=== PATIENT | female | born 1945 | race African-American/Black ===

== ENCOUNTER 2020-02-17 11:28 | Emergency (ER) | payer OTHER ==
[2020-02-17 11:39] VITALS: TEMP 98.4; BMI 28.1
[2020-02-17] MEDS ORDERED: CLINDAMYCIN 600MG PREMIX IVPB 600 MG/50 ML BAG IVPB ONE ×2 (12:38→13:41)
--- NOTE | 2020-02-17 12:44 | PDOC ---
History of Present Illness - General Chief Complaint: Wound Stated Complaint: RT LEG/FOOT PAIN Time Seen by Provider: 02/17/20 12:27 History Source: Patient Exam Limitations: No Limitations Past History - Travel History Traveled outside of the country in the last 30 days: No Close contact w/someone who was outside of country & ill: No - Medical History Allergies/Adverse Reactions: Allergies Allergy/AdvReac Type Severity Reaction Status Date / Time No Known Allergies Allergy Verified 02/17/20 11:33 Home Medications: Ambulatory Orders Clindamycin [Cleocin -] 600 mg PO Q8H #42 capsule 02/17/20 COPD: No Diabetes: Yes HTN: Yes Hypercholesterolemia: Yes - Psycho-Social/Smoking History Smoking History: Never smoked Have you smoked in the past 12 months: No - Substance Abuse Hx (Audit-C & DAST Scrn) How often the patient has a drink containing alcohol: Never Score: In Men: 4 or > Positive; In Women: 3 or > Positive: 0 Screen Result (Pos requires Nsg. Audit-10AR): Negative In the last yr the pt used illegal drug/Rx for NonMed reason: No Score: Yes response is considered Positive: 0 Screen Result (Positive result requires Nsg. DAST-10): Negative Review of Systems - Review of Systems Able to Perform ROS?: Yes Comments:: 02/17/20 12:40 CONSTITUTIONAL: Absent: fever, chills, diaphoresis, generalized weakness, malaise, loss of appetite HEENT: Absent: rhinorrhea, nasal congestion, throat pain, throat swelling, difficulty swallowing, mouth swelling, ear pain, eye pain, visual Changes CARDIOVASCULAR: Absent: chest pain, loss of consciousness, palpitations, irregular heart rate, peripheral edema RESPIRATORY: Absent: cough, shortness of breath, dyspnea with exertion, orthopnea, wheezing, stridor, hemoptysis GASTROINTESTINAL: Absent: abdominal pain, abdominal distension, nausea, vomiting, diarrhea, constipation, melena, hematochezia GENITOURINARY: Absent: dysuria, frequency, urgency, hesitancy, hematuria, flank pain, genital pain MUSCULOSKELETAL: Absent: myalgia, arthralgia, joint swelling SKIN: Present: R leg wound Absent: rash, itching, pallor HEMATOLOGIC/IMMUNOLOGIC: Absent: easy bleeding, easy bruising, lymphadenopathy, frequent infections ENDOCRINE: Absent: unexplained weight gain, unexplained weight loss, heat intolerance, cold intolerance NEUROLOGIC: Absent: headache, focal weakness or paresthesias, dizziness, unsteady gait, seizure, mental status changes, bladder or bowel incontinence PSYCHIATRIC: Absent: anxiety, depression, suicidal or homicidal ideation, hallucinations. Is the patient limited Italian proficient: No *Physical Exam - Vital Signs Last Vital Signs Temp Pulse Resp BP Pulse Ox 98.4 F 89 18 145/86 98 02/17/20 11:33 02/17/20 11:33 02/17/20 11:33 02/17/20 11:33 02/17/20 11:33 - Physical Exam 02/17/20 12:40 GENERAL: Well developed, well nourished. Awake and alert. No acute distress. HEENT: Normocephalic, atraumatic. PERRLA, EOMI. No conjunctival pallor. Sclera are non- icteric. Moist mucous membranes. NECK: Supple. Full ROM. No lymphadenopathy. CARDIOVASCULAR: Regular rate and rhythm. Distal pulses are 2+ and symmetric. PULMONARY: No evidence of respiratory distress. No distress on RA ABDOMINAL: Soft. Non-tender. Non-distended. No rebound or guarding. MUSCULOSKELETAL Normal range of motion at all joints. No bony deformities or tenderness. No CVA tenderness. EXTREMITIES: No cyanosis. No clubbing. No edema. No calf tenderness. SKIN: Quarter sized ulcer to the right lateral ankle with TTP. Serous drainage. Patient with venous stasis changes to the lower extremities bilaterally. 2+ pitting edema.Warm and dry. Normal capillary refill. No rashes. No jaundice. NEUROLOGICAL: Alert, awake, appropriate. Cranial nerves 2-12 intact. No deficits to light touch and temperature in face, upper extremities and lower extremities. No motor deficits in the in face, upper extremities and lower extremities. Normoreflexic in the upper and lower extremities. Normal speech. Toes are down-going bilaterally. Gait is normal without ataxia. PSYCHIATRIC: Cooperative. Good eye contact. Appropriate mood and affect. ED Treatment Course - LABORATORY CBC & Chemistry Diagram: 02/17/20 13:22 02/17/20 13:22 Medical Decision Making - Medical Decision Making 02/17/20 12:42 The patient is a 74-year-old female past medical history of hypertension, hyperlipidemia, diabetes, presents to the ER today with a open wound to the right lateral ankle. She states that she is had the wound since October and that it has been slowly healing. She states that approximately 3 days ago the scab fell off and she has noticed some drainage since. She states it is tender to touch. She denies fevers, chills, nausea, vomiting, numbness and tingling weakness the affected extremity. A/P: Diabetic ulcer On exam there is a quarter sized ulceration to the right superior lateral ankle with serous drainage. Also tender to palpation. Stage II diabetic ulcer. No antibiotic treatment for this reinfection at this time. Patient otherwise overall appears well. Vital signs stable afebrile. We will obtain basic labs, blood culture, wound culture. Give 1 dose of clindamycin and reevaluate. 02/17/20 14:05 No WBC count, 5 at this time. No L shift 02/17/20 14:13 BUN slightly elevated at 26, Cr of 1.2. Given DM likely patient's baseline. Have nothing to compare to as pt just moved here Given no WBC and no evidence of cellulitis on exam, will discharge patient home with out patient antibiotics and wound care. 02/17/20 14:20 Appt with wound care set up on 02/01 for 9:[address] Wiggins Will refer to PCP for other outpatient needs to establish care Strict return precautions given I discussed the physical exam findings, ancillary test results and final diagnoses with the patient. I answered all of the patient's questions. The patient was satisfied with the care received and felt comfortable with the discharge plan and treatment plan. The Patient agrees to follow up with the [facility] care physician/specialist within 24-72 hours. Return precautions were given. Discharge - Discharge Information Problems reviewed: Yes Clinical Impression/Diagnosis: Diabetic ulcer of lower extremity Condition: Stable Disposition: HOME - Admission No - Follow up/Referral Referrals: Hansel Wiggins DO [Staff Physician] - [facility] [place] [facility] [Provider Group] - Patient Discharge Instructions Patient Printed Discharge Instructions: DI for Diabetic Foot Ulcer Additional Instructions: You were seen for your wound to your right lower leg today. Please take the clindamycin as directed for 2 weeks. Take this medication with food. You may apply warm compresses to the area to help promote healing. Please follow-up with primary care doctor, referral has been provided to you. Please follow-up with our wound care center on the fifth floor on March 03 at 9:30 AM. A appointment has already been set up for you at this time. Please show up at nine to start filling out paperwork. Return to the ER sooner if you have redness to the area, purulent drainage, fever or if you have any changes in your symptoms. - Post Discharge Activity
[2020-02-17 13:38] LABS: BASO % 0.9 % (0-2.0); EOS % 1.7 % (0-4.5); HEMATOCRIT 34.7 % (32.4-45.2); HEMOGLOBIN 11.3 GM/dL (10.7-15.3); LYMPH % 22.6 % (8-40); MCH 28.9 pg (25.7-33.7); MCHC 32.5 g/dl (32.0-36.0); MEAN CELL VOLUME 88.9 fl (80-96); MEAN PLT VOLUME 7.9 fl (7.5-11.1); MONO % 6.9 % (3.8-10.2); NEUT % 67.9 % (42.8-82.8); PLATELET COUNT 224 K/MM3 (134-434); RBC 3.91 M/mm3 (3.60-5.2); RDW 14.6 % (11.6-15.6)
[2020-02-17 14:09] LABS: ALBUMIN 3.2 g/dl (3.4-5.0); BILIRUBIN,TOTAL 0.2 mg/dL (0.2-1); BLOOD UREA NITROGEN 26.4 mg/dL (7-18); CREATININE 1.2 mg/dL (0.55-1.3); POTASSIUM 4.4 mmol/L (3.5-5.1); TOT PROT 7.5 g/dl (6.4-8.2)
[2020-02-17 14:45] VITALS: BP 139/75; PULSE 72
== END 2020-02-17 14:40 | disposition home or self-care (01) ==
LOC: JER 11:28
DX: E11.621 Type 2 diabetes mellitus with foot ulcer (principal)
CPT/HCPCS: 36415; 80053; 85025; 87040; 87070; 87205; 99284-25

== ENCOUNTER 2020-07-09 18:56 | Inpatient (IN) | payer OTHER ==
[2020-07-09 19:10] VITALS: BMI 28.8
[2020-07-09] MEDS ORDERED: VALSARTAN 40 MG TABLET PO ONE (19:27)
[2020-07-09] MEDS ORDERED: NITROGLYCERIN SUBLINGUAL 1/150 0.4 MG TAB SL ONE ×2 (19:27→19:38)
[2020-07-09] MEDS ORDERED: VALSARTAN 80 MG TABLET ONE (19:39)
[2020-07-09] MEDS ORDERED: ACETAMINOPHEN 1000 MG/100 ML VIAL (NON FORMULARY) IVPB ONE (20:00)
[2020-07-09] MEDS ORDERED: ACETAMINOPHEN INJECTION 100 ML IVPB ONE (20:15)
[2020-07-09] MEDS ORDERED: FOLIC ACID INJECTION - 1 MG, THIAMINE HCL 100 MG, MULTIVIT INJECTION ADULT 10 ML in SOD... IVPB ONE (20:15)
[2020-07-09 20:35] LABS: INR 0.96 (0.83-1.09); PROTHROMBIN TIME (PATIENT) 11.6 SEC (9.7-13.0)
[2020-07-09 20:37] LABS: BASO % 0.5 % (0-2.0); EOS % 0.8 % (0-4.5); HEMOGLOBIN 11.3 GM/dL (10.7-15.3); LYMPH % 21.6 % (8-40); MCH 29.1 pg (25.7-33.7); MCHC 33.2 g/dl (32.0-36.0); MEAN CELL VOLUME 87.7 fl (80-96); MEAN PLT VOLUME 9.3 fl (7.5-11.1); MONO % 6.9 % (3.8-10.2); NEUT % 70.2 % (42.8-82.8); PLATELET COUNT 213 K/MM3 (134-434); RBC 3.87 M/mm3 (3.60-5.2); RDW 14.7 % (11.6-15.6); WHITE BLOOD COUNT 7.2 K/mm3 (4.0-10.0)
[2020-07-09 20:40] LABS: POTASSIUM 4.2 mmol/L (3.5-5.1)
[2020-07-09 20:44] LABS: ALBUMIN 2.9 g/dl (3.4-5.0); BLOOD UREA NITROGEN 22.9 mg/dL (7-18); CALCIUM 9.3 mg/dL (8.5-10.1)
[2020-07-09 20:46] LABS: CREATININE 1.2 mg/dL (0.55-1.3)
[2020-07-09 20:48] LABS: BILIRUBIN,TOTAL 0.3 mg/dL (0.2-1); TOT PROT 6.8 g/dl (6.4-8.2)
[2020-07-09] MEDS ORDERED: INSULIN REGULAR HUMAN 100 UNITS/ML *VIAL SQ ONE (21:08)
[2020-07-09 21:50] LABS: EPI CELLS 7 /uL (0-25.1); HYALINE CASTS 2 /uL (0-3.1); URINE APPEARANCE CLOUDY; URINE BACTERIA 382 /uL (0-1359); URINE BILIRUBIN NEGATIVE (NEGATIVE); URINE COLOR YELLOW; URINE GLUCOSE (UA) 3+ (NEGATIVE); URINE KETONE NEGATIVE (NEGATIVE); URINE LEUK ESTERASE NEGATIVE (NEGATIVE); URINE NITRITE NEGATIVE (NEGATIVE); URINE PROTEIN 4+ (NEGATIVE); URINE RBC 26 /uL (0-23.9); URINE UROBILINOGEN 0.2 mg/dL (0.2-1.0); URINE WBC 180 /uL (0-25.8)
[2020-07-09] MEDS ORDERED: hydrALAZINE HCL 20 MG/ML VIAL IVPUSH ONE (23:48)
[2020-07-09] MEDS ORDERED: diphenhydrAMINE HCL 25 MG CAPSULE (FP) PO PRN (23:57)
[2020-07-09] MEDS ORDERED: ONDANSETRON 4 MG TABLET PO PRN (23:59)
[2020-07-10] MEDS ORDERED: diphenhydrAMINE HCL 25 MG CAPSULE (FP) PO PRN
[2020-07-10] MEDS: LISINOPRIL 20 MG TABLET PO SCH ×2 (00:30→10:06)
[2020-07-10] MEDS: SERTRALINE HCL 50 MG TABLET (FP) PO SCH ×2 (00:30→10:06)
[2020-07-10] MEDS ORDERED: hydrALAZINE HCL 10 MG TABLET PO PRN (02:00)
[2020-07-10] MEDS ORDERED: hydrALAZINE HCL 20 MG/ML VIAL IVPUSH ONE ×2 (03:13→14:49)
[2020-07-10] MEDS ORDERED: amLODIPine BESYLATE 2.5 MG TABLET (FP) PO ONE (03:13)
[2020-07-10] MEDS ORDERED: INSULIN (NOVOLOG) ASPART 100 UNITS/ML 10ML VIAL SQ ONE ×2 (03:14)
[2020-07-10] MEDS ORDERED: amLODIPine BESYLATE 5 MG TABLET (FP) ONE (03:32)
[2020-07-10 03:55] LABS: BLOOD UREA NITROGEN 22.6 mg/dL (7-18); CALCIUM 8.8 mg/dL (8.5-10.1)
[2020-07-10 03:58] LABS: CREATININE 1.3 mg/dL (0.55-1.3)
[2020-07-10 04:00] LABS: POTASSIUM 8.6 mmol/L (3.5-5.1)
[2020-07-10] MEDS ORDERED: LORazepam 2 MG/ML SDV VIAL IVPUSH ONE (04:31)
[2020-07-10 04:47] LABS: POTASSIUM 3.9 mmol/L (3.5-5.1)
[2020-07-10 04:49] LABS: CALCIUM 9.3 mg/dL (8.5-10.1)
[2020-07-10 04:50] LABS: BLOOD UREA NITROGEN 24.2 mg/dL (7-18)
[2020-07-10] MEDS ORDERED: LORazepam 2 MG/ML SDV VIAL ONE (04:51)
[2020-07-10 04:52] LABS: CREATININE 1.2 mg/dL (0.55-1.3)
[2020-07-10] MEDS ORDERED: LABETALOL HCL 5 MG/1 ML (100MG/20 ML VIAL) IVPUSH ONE ×2 (05:18→06:23)
[2020-07-10 06:54] LABS: BASO % 0.4 % (0-2.0); EOS % 0.1 % (0-4.5); HEMATOCRIT 36.1 % (32.4-45.2); MCH 29.1 pg (25.7-33.7); MCHC 33.3 g/dl (32.0-36.0); MEAN CELL VOLUME 87.3 fl (80-96); MEAN PLT VOLUME 8.6 fl (7.5-11.1); MONO % 5.1 % (3.8-10.2); NEUT % 83.4 % (42.8-82.8); PLATELET COUNT 202 K/MM3 (134-434); RBC 4.13 M/mm3 (3.60-5.2); RDW 14.8 % (11.6-15.6); WHITE BLOOD COUNT 7.9 K/mm3 (4.0-10.0)
[2020-07-10 07:12] LABS: POTASSIUM 3.8 mmol/L (3.5-5.1)
[2020-07-10 07:16] LABS: BLOOD UREA NITROGEN 23.5 mg/dL (7-18); CALCIUM 9.5 mg/dL (8.5-10.1); MAGNESIUM 1.8 mg/dL (1.8-2.4)
[2020-07-10 07:19] LABS: CREATININE 1.3 mg/dL (0.55-1.3)
[2020-07-10 07:20] LABS: BILIRUBIN,TOTAL 0.4 mg/dL (0.2-1); TOT PROT 6.8 g/dl (6.4-8.2)
[2020-07-10] MEDS ORDERED: ASPIRIN 325 MG TABLET PO ONE (10:00)
[2020-07-10] MEDS: amLODIPine BESYLATE 5 MG TABLET (FP) PO SCH (10:06)
[2020-07-10] MEDS: HYDROCHLOROTHIAZIDE 12.5 MG CAPSULE (FP) PO SCH (10:06)
[2020-07-10] MEDS: INSULIN SLIDING SCALE (NOVOLOG) 1 VIAL SQ SCH ×4 (10:24→21:50)
[2020-07-10] MEDS ORDERED: ENOXAPARIN NA (PORCINE) 40 MG/0.4 ML DISP.SYRIN SQ ONE (10:26)
[2020-07-10] MEDS ORDERED: INSULIN SLIDING SCALE (NOVOLOG) 1 VIAL SQ ONE (10:26)
[2020-07-10] MEDS: ENOXAPARIN NA (PORCINE) 40 MG/0.4 ML DISP.SYRIN SQ SCH (10:33)
[2020-07-10] MEDS ORDERED: LABETALOL HCL 5 MG/1 ML (200MG/40ML VIAL) IVPB ONE (10:47)
[2020-07-10] MEDS ORDERED: LORazepam 1 MG TABLET PO PRN (12:53)
[2020-07-10] MEDS ORDERED: LORazepam 2 MG/ML SDV VIAL IVPB PRN (17:55)
[2020-07-11] MEDS: INSULIN SLIDING SCALE (NOVOLOG) 1 VIAL SQ SCH ×4 (06:41→22:48)
[2020-07-11] MEDS: amLODIPine BESYLATE 5 MG TABLET (FP) PO SCH (11:01)
[2020-07-11] MEDS: ENOXAPARIN NA (PORCINE) 40 MG/0.4 ML DISP.SYRIN SQ SCH (11:01)
[2020-07-11] MEDS: LISINOPRIL 20 MG TABLET PO SCH (11:01)
[2020-07-11] MEDS: SERTRALINE HCL 50 MG TABLET (FP) PO SCH (11:02)
[2020-07-11] MEDS: ASPIRIN COATED 81 MG TABLET.EC PO SCH (11:02)
[2020-07-11] MEDS: HYDROCHLOROTHIAZIDE 12.5 MG CAPSULE (FP) PO SCH (11:02)
[2020-07-11] MEDS: ATORVASTATIN CA 40 MG TABLET (FP) PO SCH (22:47)
[2020-07-12] MEDS: INSULIN SLIDING SCALE (NOVOLOG) 1 VIAL SQ SCH ×4 (06:51→22:20)
[2020-07-12 08:26] LABS: BASO % 1.1 % (0-2.0); EOS % 1.5 % (0-4.5); HEMATOCRIT 32.9 % (32.4-45.2); LYMPH % 28.5 % (8-40); MCH 29.6 pg (25.7-33.7); MCHC 33.5 g/dl (32.0-36.0); MEAN CELL VOLUME 88.3 fl (80-96); MONO % 8.6 % (3.8-10.2); NEUT % 60.3 % (42.8-82.8); PLATELET COUNT 187 K/MM3 (134-434); RBC 3.72 M/mm3 (3.60-5.2); RDW 15.2 % (11.6-15.6)
[2020-07-12 08:44] LABS: POTASSIUM 4.2 mmol/L (3.5-5.1)
[2020-07-12 08:48] LABS: ALBUMIN 2.5 g/dl (3.4-5.0)
[2020-07-12 08:51] LABS: MAGNESIUM 2.2 mg/dL (1.8-2.4)
[2020-07-12 08:52] LABS: BLOOD UREA NITROGEN 27.4 mg/dL (7-18); CALCIUM 8.9 mg/dL (8.5-10.1); CREATININE 1.6 mg/dL (0.55-1.3)
[2020-07-12 08:53] LABS: TOT PROT 5.9 g/dl (6.4-8.2)
[2020-07-12 08:56] LABS: PHOSPHOROUS 4.2 mg/dL (2.5-4.9)
[2020-07-12 08:57] LABS: BILIRUBIN,TOTAL 0.5 mg/dL (0.2-1)
[2020-07-12] MEDS: ASPIRIN COATED 81 MG TABLET.EC PO SCH (10:06)
[2020-07-12] MEDS: LISINOPRIL 20 MG TABLET PO SCH (10:07)
[2020-07-12] MEDS: amLODIPine BESYLATE 5 MG TABLET (FP) PO SCH (10:07)
[2020-07-12] MEDS: ENOXAPARIN NA (PORCINE) 40 MG/0.4 ML DISP.SYRIN SQ SCH (10:07)
[2020-07-12] MEDS: SERTRALINE HCL 50 MG TABLET (FP) PO SCH (10:09)
[2020-07-12] MEDS: HYDROCHLOROTHIAZIDE 12.5 MG CAPSULE (FP) PO SCH (10:10)
[2020-07-12] MEDS ORDERED: amLODIPine BESYLATE 5 MG TABLET (FP) PO ONE (22:00)
[2020-07-12] MEDS: ATORVASTATIN CA 40 MG TABLET (FP) PO SCH (22:20)
[2020-07-13] MEDS: INSULIN SLIDING SCALE (NOVOLOG) 1 VIAL SQ SCH ×4 (07:04→22:12)
[2020-07-13] MEDS: ASPIRIN COATED 81 MG TABLET.EC PO SCH (09:27)
[2020-07-13] MEDS: SERTRALINE HCL 50 MG TABLET (FP) PO SCH (09:27)
[2020-07-13] MEDS: HYDROCHLOROTHIAZIDE 12.5 MG CAPSULE (FP) PO SCH (09:27)
[2020-07-13] MEDS: LISINOPRIL 20 MG TABLET PO SCH (09:27)
[2020-07-13] MEDS: ENOXAPARIN NA (PORCINE) 40 MG/0.4 ML DISP.SYRIN SQ SCH (09:27)
[2020-07-13] MEDS ORDERED: amLODIPine BESYLATE 5 MG TABLET (FP) PO SCH (10:00)
[2020-07-13 11:52] LABS: HEMATOCRIT 31.9 % (32.4-45.2); HEMOGLOBIN 10.6 GM/dL (10.7-15.3); MCH 29.4 pg (25.7-33.7); MCHC 33.3 g/dl (32.0-36.0); MEAN CELL VOLUME 88.2 fl (80-96); MEAN PLT VOLUME 8.7 fl (7.5-11.1); PLATELET COUNT 209 K/MM3 (134-434); RBC 3.62 M/mm3 (3.60-5.2); RDW 14.9 % (11.6-15.6); WHITE BLOOD COUNT 5.9 K/mm3 (4.0-10.0)
[2020-07-13] MEDS: INSULIN (LEVEMIR) 100 UNITS/ML UNITS SQ SCH ×2 (12:17→22:11)
[2020-07-13 12:27] LABS: BLOOD UREA NITROGEN 31.2 mg/dL (7-18); CALCIUM 8.4 mg/dL (8.5-10.1); CREATININE 1.8 mg/dL (0.55-1.3); MAGNESIUM 2.3 mg/dL (1.8-2.4); POTASSIUM 4.6 mmol/L (3.5-5.1)
[2020-07-13] MEDS ORDERED: amLODIPine BESYLATE 10 MG TABLET (FP) PO SCH (22:00)
[2020-07-13] MEDS: ATORVASTATIN CA 40 MG TABLET (FP) PO SCH (22:04)
[2020-07-14] MEDS: INSULIN SLIDING SCALE (NOVOLOG) 1 VIAL SQ SCH ×2 (06:00→12:51)
[2020-07-14] MEDS: INSULIN (LEVEMIR) 100 UNITS/ML UNITS SQ SCH (06:02)
[2020-07-14 08:57] LABS: POTASSIUM 4.6 mmol/L (3.5-5.1)
[2020-07-14 09:01] LABS: CALCIUM 8.7 mg/dL (8.5-10.1)
[2020-07-14 09:02] LABS: ALBUMIN 2.4 g/dl (3.4-5.0)
[2020-07-14 09:05] LABS: BILIRUBIN,TOTAL 0.3 mg/dL (0.2-1); TOT PROT 5.7 g/dl (6.4-8.2)
[2020-07-14 09:06] LABS: CREATININE 1.7 mg/dL (0.55-1.3)
[2020-07-14] MEDS ORDERED: LISINOPRIL 20 MG TABLET PO SCH ×2 (10:00)
[2020-07-14] MEDS: ENOXAPARIN NA (PORCINE) 40 MG/0.4 ML DISP.SYRIN SQ SCH (10:21)
[2020-07-14] MEDS: SERTRALINE HCL 50 MG TABLET (FP) PO SCH (10:21)
[2020-07-14] MEDS: ASPIRIN COATED 81 MG TABLET.EC PO SCH (10:23)
[2020-07-14 16:29] VITALS: BP 146/58; PULSE 60; TEMP 97.8
[2020-07-14] MEDS ORDERED: NYSTATIN 500,000 UNITS/5 ML SUSPENSION PO SCH (18:00)
== END 2020-07-14 15:06 | disposition home or self-care (01) | DRG 65 ==
LOC: JER 18:56 → JERBED 21:33 → J6WEST-2 07-10 16:49
PROVIDERS: ADMIT Internal Medicine; ATTEND Internal Medicine
DX: I63.511 Cerebral infarction due to unspecified occlusion or stenosis of right middle cerebral artery (principal); E46 Unspecified protein-calorie malnutrition; I67.4 Hypertensive encephalopathy; E87.1 Hypo-osmolality and hyponatremia; N17.9 Acute kidney failure, unspecified; I16.0 Hypertensive urgency; I12.9 Hypertensive chronic kidney disease with stage 1 through stage 4 chronic kidney disease, or unspecified chronic kidney disease; E11.21 Type 2 diabetes mellitus with diabetic nephropathy; N18.9 Chronic kidney disease, unspecified; E88.09 Other disorders of plasma-protein metabolism, not elsewhere classified; F32.9 Major depressive disorder, single episode, unspecified; E78.5 Hyperlipidemia, unspecified; E78.00 Pure hypercholesterolemia, unspecified; I25.10 Atherosclerotic heart disease of native coronary artery without angina pectoris; E87.5 Hyperkalemia; R80.9 Proteinuria, unspecified
CPT/HCPCS: 36415; 70450-TC; 70553-TC; 71045-TC-FY; 72131-TC; 74176-TC; 76775-TC; 80048; 80053; 80061; 81003; 82088; 82550; 82553; 82565; 82962; 83036; 83721; 83735; 84100; 84156; 84244; 84443; 84484; 85025; 85027; 85610; 87086; 93005; 93010; 93306-TC; 93880-TC; 97116-GP; 97162-GP; 99285-25; C9803; J0131; U0003

== ENCOUNTER 2020-08-23 23:50 | Observation (INO) | payer OTHER ==
[2020-08-24 00:39] VITALS: BMI 31.6
[2020-08-24] MEDS ORDERED: ACETAMINOPHEN 1000 MG/100 ML VIAL (NON FORMULARY) IVPB ONE (01:12)
[2020-08-24] MEDS ORDERED: ACETAMINOPHEN INJECTION 100 ML IVPB ONE (01:29)
[2020-08-24 01:52] LABS: EOS % 1.7 % (0-4.5); HEMATOCRIT 33.1 % (32.4-45.2); LYMPH % 23.7 % (8-40); MCH 29.3 pg (25.7-33.7); MCHC 33.3 g/dl (32.0-36.0); NEUT % 66.6 % (42.8-82.8); PLATELET COUNT 251 K/MM3 (134-434); RBC 3.76 M/mm3 (3.60-5.2); RDW 14.9 % (11.6-15.6)
[2020-08-24 02:07] LABS: CHLORIDE 103 mmol/L (98-107); SODIUM 135 mmol/L (136-145)
[2020-08-24 02:08] LABS: CALCIUM 8.8 mg/dL (8.5-10.1)
[2020-08-24 02:10] LABS: ALBUMIN 2.7 g/dl (3.4-5.0); BLOOD UREA NITROGEN 30.7 mg/dL (7-18); CO2 27 mmol/L (21-32)
[2020-08-24 02:13] LABS: CREATININE 1.6 mg/dL (0.55-1.3); SGOT/AST 61 U/L (15-37)
[2020-08-24 02:14] LABS: BILIRUBIN,TOTAL 0.3 mg/dL (0.2-1)
[2020-08-24 02:15] LABS: ALK PHOS 221 U/L (45-117)
[2020-08-24 02:34] LABS: ANION GAP 5 MMOL/L (8-16); GLUCOSE,RANDOM 305 mg/dL (74-106); SGPT/ALT 26 U/L (13-61)
[2020-08-24] MEDS ORDERED: SODIUM CHLORIDE 0.9% 500 ML INFUS.BAG IV ONE (02:39)
[2020-08-24] MEDS ORDERED: LISINOPRIL 20 MG TABLET PO ONE (04:57)
[2020-08-24] MEDS ORDERED: LISINOPRIL 20 MG TABLET ONE (05:04)
[2020-08-24 05:08] LABS: EPI CELLS 21 /uL (0-25.1); HYALINE CASTS 2 /uL (0-3.1); PH,URINE 5.5 (5.0-8.0); URINE APPEARANCE CLEAR; URINE BACTERIA 415 /uL (0-1359); URINE BILIRUBIN NEGATIVE (NEGATIVE); URINE COLOR YELLOW; URINE GLUCOSE (UA) 3+ (NEGATIVE); URINE KETONE NEGATIVE (NEGATIVE); URINE LEUK ESTERASE NEGATIVE (NEGATIVE); URINE NITRITE NEGATIVE (NEGATIVE); URINE PROTEIN 3+ (NEGATIVE); URINE RBC 18 /uL (0-23.9); URINE UROBILINOGEN 0.2 mg/dL (0.2-1.0)
[2020-08-24] MEDS ORDERED: ACETAMINOPHEN 325 MG TABLET (FP) PO PRN (12:45)
[2020-08-24] MEDS ORDERED: NIFEdipine 10 MG CAPSULE (FP) PO ONE (14:14)
[2020-08-24] MEDS ORDERED: hydrALAZINE HCL 20 MG/ML VIAL IVPUSH PRN (14:34)
[2020-08-24] MEDS ORDERED: amLODIPine BESYLATE 10 MG TABLET (FP) PO PRN (14:36)
[2020-08-24] MEDS ORDERED: amLODIPine BESYLATE 10 MG TABLET (FP) PO ONE (14:36)
[2020-08-24] MEDS ORDERED: hydrALAZINE HCL 20 MG/ML VIAL ONE (14:40)
[2020-08-24] MEDS: INSULIN SLIDING SCALE (NOVOLOG) 1 VIAL SQ SCH (16:50)
[2020-08-24] MEDS ORDERED: HEPARIN NA (PORCINE) 5,000 UNITS/ML 1ML VIAL ONE (18:10)
[2020-08-24] MEDS: HEPARIN NA (PORCINE) 5,000 UNITS/ML 1ML VIAL SQ SCH (18:12)
[2020-08-24] MEDS ORDERED: ATORVASTATIN CA 40 MG TABLET (FP) PO SCH (22:00)
[2020-08-25] MEDS ORDERED: ATORVASTATIN CA 40 MG TABLET (FP) ONE (00:30)
[2020-08-25 06:37] VITALS: BP 187/86; PULSE 81; TEMP 98.6
[2020-08-25] MEDS: HEPARIN NA (PORCINE) 5,000 UNITS/ML 1ML VIAL SQ SCH ×2 (06:49→09:24)
[2020-08-25] MEDS ORDERED: HEPARIN NA (PORCINE) 5,000 UNITS/ML 1ML VIAL ONE (06:49)
[2020-08-25] MEDS: INSULIN SLIDING SCALE (NOVOLOG) 1 VIAL SQ SCH (07:51)
[2020-08-25 08:07] LABS: EOS % 2.5 % (0-4.5); HEMATOCRIT 31.5 % (32.4-45.2); HEMOGLOBIN 10.6 GM/dL (10.7-15.3); LYMPH % 26.6 % (8-40); MCH 29.6 pg (25.7-33.7); MCHC 33.6 g/dl (32.0-36.0); MEAN CELL VOLUME 88.1 fl (80-96); MEAN PLT VOLUME 8.8 fl (7.5-11.1); MONO % 7.3 % (3.8-10.2); NEUT % 62.6 % (42.8-82.8); PLATELET COUNT 224 K/MM3 (134-434); RBC 3.58 M/mm3 (3.60-5.2); RDW 14.8 % (11.6-15.6); WHITE BLOOD COUNT 5.2 K/mm3 (4.0-10.0)
[2020-08-25 08:17] LABS: ALBUMIN 2.6 g/dl (3.4-5.0)
[2020-08-25 08:19] LABS: BLOOD UREA NITROGEN 25.5 mg/dL (7-18)
[2020-08-25 08:20] LABS: BILIRUBIN,TOTAL 0.5 mg/dL (0.2-1); MAGNESIUM 2.1 mg/dL (1.8-2.4); TOT PROT 5.9 g/dl (6.4-8.2)
[2020-08-25 08:21] LABS: CREATININE 1.3 mg/dL (0.55-1.3)
[2020-08-25 08:27] LABS: PHOSPHOROUS 3.6 mg/dL (2.5-4.9)
[2020-08-25] MEDS ORDERED: amLODIPine BESYLATE 5 MG TABLET (FP) ONE (09:19)
[2020-08-25] MEDS ORDERED: ASPIRIN COATED 81 MG TABLET.EC ONE (09:19)
[2020-08-25] MEDS ORDERED: LISINOPRIL 20 MG TABLET ONE (09:20)
[2020-08-25] MEDS ORDERED: ASPIRIN COATED 81 MG TABLET.EC PO SCH (10:00)
[2020-08-25] MEDS ORDERED: LISINOPRIL 20 MG TABLET PO SCH (10:00)
[2020-08-25] MEDS ORDERED: amLODIPine BESYLATE 5 MG TABLET (FP) PO SCH (10:00)
== END 2020-08-25 13:25 | disposition left against medical advice (07) ==
LOC: JER 23:50 → JERBED 08-24 05:09 → INTOOBSV 08-24 05:09 → UNDOADMOB 08-24 05:09 → JERBED 08-24 12:45
PROVIDERS: ADMIT Hospitalist
PROC: 3E033NZ Introduction of Analgesics, Hypnotics, Sedatives into Peripheral Vein, Percutaneous Approach (ICD-10-PCS; principal; 2020-08-24)
PROC: 3E013VG Introduction of Insulin into Subcutaneous Tissue, Percutaneous Approach (ICD-10-PCS; 2020-08-24)
PROC: 3E0337Z Introduction of Electrolytic and Water Balance Substance into Peripheral Vein, Percutaneous Approach (ICD-10-PCS; 2020-08-24)
DX: R10.9 Unspecified abdominal pain (principal); R29.6 Repeated falls; R79.89 Other specified abnormal findings of blood chemistry; N63.0 Unspecified lump in unspecified breast; E11.9 Type 2 diabetes mellitus without complications; I73.9 Peripheral vascular disease, unspecified; Z86.73 Personal history of transient ischemic attack (TIA), and cerebral infarction without residual deficits; I10 Essential (primary) hypertension; J45.909 Unspecified asthma, uncomplicated; E78.00 Pure hypercholesterolemia, unspecified; R31.9 Hematuria, unspecified; W18.39XA Other fall on same level, initial encounter; Z91.81 History of falling; Y93.89 Activity, other specified; Y92.89 Other specified places as the place of occurrence of the external cause; I70.0 Atherosclerosis of aorta; E66.9 Obesity, unspecified; R26.81 Unsteadiness on feet; Z29.9 Encounter for prophylactic measures, unspecified; Z68.31 Body mass index [BMI] 31.0-31.9, adult; Z87.891 Personal history of nicotine dependence; R44.3 Hallucinations, unspecified
CPT/HCPCS: 36415; 70450-TC; 72125-TC; 74177-TC; 76705-TC; 80053; 81003; 82550; 82553; 82962; 83605; 83690; 83735; 84100; 84132; 84484; 85025; 87086; 93005; 93010; 96361; 96372; 96374; 99285-25; C9803; G0378; J0131; J1644; U0003; U0005

== ENCOUNTER 2020-11-17 13:55 | Inpatient (IN) | payer OTHER ==
[2020-11-17 14:25] VITALS: BMI 28.4
[2020-11-17 16:12] LABS: BASO % 0.8 % (0-2.0); HEMATOCRIT 32.2 % (32.4-45.2); HEMOGLOBIN 10.6 GM/dL (10.7-15.3); LYMPH % 20.3 % (8-40); MCH 28.4 pg (25.7-33.7); MCHC 32.8 g/dl (32.0-36.0); MEAN CELL VOLUME 86.7 fl (80-96); MEAN PLT VOLUME 7.5 fl (7.5-11.1); MONO % 6.8 % (3.8-10.2); NEUT % 70.1 % (42.8-82.8); PLATELET COUNT 287 10^3/uL (134-434); RBC 3.71 M/mm3 (3.60-5.2); RDW 14.3 % (11.6-15.6); WHITE BLOOD COUNT 5.8 K/mm3 (4.0-10.0)
[2020-11-17 16:21] LABS: EPI CELLS 34 /uL (0-25.1); HYALINE CASTS 1 /uL (0-3.1); PH,URINE 6.5 (5.0-8.0); URINE APPEARANCE CLEAR; URINE BACTERIA 462 /uL (0-1359); URINE BILIRUBIN NEGATIVE (NEGATIVE); URINE COLOR YELLOW; URINE GLUCOSE (UA) TRACE (NEGATIVE); URINE KETONE NEGATIVE (NEGATIVE); URINE LEUK ESTERASE TRACE (NEGATIVE); URINE NITRITE NEGATIVE (NEGATIVE); URINE PROTEIN 3+ (NEGATIVE); URINE RBC 29 /uL (0-23.9); URINE UROBILINOGEN 0.2 mg/dL (0.2-1.0); URINE WBC 61 /uL (0-25.8)
[2020-11-17 16:33] LABS: CHLORIDE 109 mmol/L (98-107); SODIUM 142 mmol/L (136-145)
[2020-11-17 16:35] LABS: CALCIUM 8.9 mg/dL (8.5-10.1)
[2020-11-17 16:36] LABS: ALBUMIN 2.8 g/dl (3.4-5.0); ANION GAP 6 MMOL/L (8-16); BLOOD UREA NITROGEN 22.1 mg/dL (7-18); CO2 27 mmol/L (21-32); GLUCOSE,RANDOM 141 mg/dL (74-106); MAGNESIUM 2.3 mg/dL (1.8-2.4)
[2020-11-17 16:39] LABS: CREATININE 1.4 mg/dL (0.55-1.3); SGOT/AST 12 U/L (15-37); SGPT/ALT 19 U/L (13-61)
[2020-11-17 16:41] LABS: BILIRUBIN,TOTAL 0.2 mg/dL (0.2-1); TOT PROT 7.2 g/dl (6.4-8.2)
[2020-11-17 16:42] LABS: ALK PHOS 155 U/L (45-117)
[2020-11-17] MEDS ORDERED: amLODIPine BESYLATE 10 MG TABLET (FP) PO ONE (16:43)
[2020-11-17 16:44] LABS: N-TERMINAL BNP 1723.3 pg/ml (5-450)
[2020-11-17] MEDS ORDERED: amLODIPine BESYLATE 5 MG TABLET (FP) ONE (16:44)
[2020-11-17 17:10] LABS: YEAST FEW (NEGATIVE)
[2020-11-17] MEDS ORDERED: CEFTRIAXONE 1,000 MG in DEXTROSE 5%-WATER - 50 ML IVPB ONE (18:45)
[2020-11-17] MEDS ORDERED: CEFTRIAXONE 1 GM/50 ML BAG ONE (19:04)
[2020-11-18] MEDS ORDERED: hydrALAZINE HCL 20 MG/ML VIAL IVPUSH ONE (00:24)
[2020-11-18] MEDS ORDERED: LABETALOL HCL 5 MG/1 ML (100MG/20 ML VIAL) IVPUSH ONE (03:47)
[2020-11-18] MEDS: amLODIPine BESYLATE 10 MG TABLET (FP) PO SCH ×2 (04:07→10:03)
[2020-11-18] MEDS: HEPARIN NA (PORCINE) 5,000 UNITS/ML 1ML VIAL SQ SCH ×3 (05:59→22:38)
[2020-11-18 07:56] LABS: HEMATOCRIT 33.8 % (32.4-45.2); HEMOGLOBIN 10.8 GM/dL (10.7-15.3); MCH 28.1 pg (25.7-33.7); MEAN CELL VOLUME 87.7 fl (80-96); MEAN PLT VOLUME 8.5 fl (7.5-11.1); PLATELET COUNT 295 10^3/uL (134-434); RBC 3.85 M/mm3 (3.60-5.2); RDW 14.5 % (11.6-15.6); WHITE BLOOD COUNT 6.9 K/mm3 (4.0-10.0)
[2020-11-18 08:23] LABS: CHLORIDE 105 mmol/L (98-107); SODIUM 139 mmol/L (136-145)
[2020-11-18 08:31] LABS: SGPT/ALT 16 U/L (13-61)
[2020-11-18 08:32] LABS: BILIRUBIN,TOTAL 0.2 mg/dL (0.2-1); TOT PROT 6.8 g/dl (6.4-8.2)
[2020-11-18 08:33] LABS: ALBUMIN 2.6 g/dl (3.4-5.0); ANION GAP 9 MMOL/L (8-16); BLOOD UREA NITROGEN 22.8 mg/dL (7-18); CALCIUM 8.6 mg/dL (8.5-10.1); CO2 25 mmol/L (21-32); GLUCOSE,RANDOM 253 mg/dL (74-106); MAGNESIUM 2.3 mg/dL (1.8-2.4)
[2020-11-18 08:34] LABS: ALK PHOS 150 U/L (45-117); CREATININE 1.4 mg/dL (0.55-1.3); IRON SERUM 42 ug/dL (50-175); PHOSPHOROUS 3.2 mg/dL (2.5-4.9); SGOT/AST 10 U/L (15-37)
[2020-11-18 08:35] LABS: TOTAL IRON BINDING CAPACITY 241 ug/dL (250-450)
[2020-11-18] MEDS ORDERED: cefTRIAXone SODIUM 1 GM VIAL ONE (09:33)
[2020-11-18] MEDS ORDERED: DEXTROSE 5%-WATER - 50 ML IVPB ONE (09:33)
[2020-11-18] MEDS ORDERED: CEFTRIAXONE 1 GM in DEXTROSE 5%-WATER - 50 ML IVPB SCH (10:00)
[2020-11-18] MEDS: ASPIRIN COATED 81 MG TABLET.EC PO SCH (10:03)
[2020-11-18] MEDS: FUROSEMIDE 40 MG/4 ML INJECTABLE VIAL IVPB SCH (10:03)
[2020-11-18] MEDS ORDERED: INSULIN SLIDING SCALE (NOVOLOG) 1 VIAL SQ SCH (16:30)
[2020-11-18] MEDS: INSULIN SLIDING SCALE (NOVOLOG) 1 VIAL SQ SCH ×2 (17:20→22:51)
[2020-11-18] MEDS: INSULIN (LEVEMIR) 100 UNITS/ML UNITS SQ SCH (22:38)
[2020-11-18] MEDS: ATORVASTATIN CA 40 MG TABLET (FP) PO SCH (22:39)
[2020-11-19] MEDS: INSULIN SLIDING SCALE (NOVOLOG) 1 VIAL SQ SCH ×4 (07:23→22:02)
[2020-11-19] MEDS: HEPARIN NA (PORCINE) 5,000 UNITS/ML 1ML VIAL SQ SCH ×3 (07:23→22:03)
[2020-11-19 07:48] LABS: BASO % 0.6 % (0-2.0); EOS % 3.4 % (0-4.5); HEMATOCRIT 32.1 % (32.4-45.2); HEMOGLOBIN 10.3 GM/dL (10.7-15.3); LYMPH % 22.5 % (8-40); MCH 28.1 pg (25.7-33.7); MCHC 32.2 g/dl (32.0-36.0); MEAN CELL VOLUME 87.3 fl (80-96); MEAN PLT VOLUME 8.7 fl (7.5-11.1); MONO % 7.2 % (3.8-10.2); NEUT % 66.3 % (42.8-82.8); PLATELET COUNT 276 10^3/uL (134-434); RBC 3.68 M/mm3 (3.60-5.2); RDW 14.6 % (11.6-15.6); WHITE BLOOD COUNT 5.9 K/mm3 (4.0-10.0)
[2020-11-19 07:49] LABS: ALBUMIN 2.6 g/dl (3.4-5.0); BLOOD UREA NITROGEN 27.8 mg/dL (7-18)
[2020-11-19 07:51] LABS: BILIRUBIN,TOTAL 0.2 mg/dL (0.2-1); CALCIUM 8.5 mg/dL (8.5-10.1); MAGNESIUM 2.2 mg/dL (1.8-2.4); TOT PROT 6.5 g/dl (6.4-8.2)
[2020-11-19 07:52] LABS: CREATININE 1.5 mg/dL (0.55-1.3)
[2020-11-19] MEDS: amLODIPine BESYLATE 10 MG TABLET (FP) PO SCH (09:34)
[2020-11-19] MEDS: FUROSEMIDE 40 MG/4 ML INJECTABLE VIAL IVPB SCH (09:34)
[2020-11-19] MEDS: ASPIRIN COATED 81 MG TABLET.EC PO SCH (09:34)
[2020-11-19] MEDS ORDERED: LISINOPRIL 10 MG TABLET PO SCH (10:00)
[2020-11-19 10:20] LABS: PLATELET ESTIMATE ADEQUATE
[2020-11-19] MEDS: ATORVASTATIN CA 40 MG TABLET (FP) PO SCH (22:03)
[2020-11-19] MEDS: INSULIN (LEVEMIR) 100 UNITS/ML UNITS SQ SCH (22:03)
[2020-11-20] MEDS: INSULIN SLIDING SCALE (NOVOLOG) 1 VIAL SQ SCH ×4 (06:02→21:47)
[2020-11-20] MEDS: HEPARIN NA (PORCINE) 5,000 UNITS/ML 1ML VIAL SQ SCH ×3 (06:53→21:44)
[2020-11-20 07:00] LABS: BASO % 0.9 % (0-2.0); EOS % 3.3 % (0-4.5); HEMATOCRIT 31.1 % (32.4-45.2); HEMOGLOBIN 10.5 GM/dL (10.7-15.3); MCH 29.1 pg (25.7-33.7); MCHC 33.7 g/dl (32.0-36.0); MEAN CELL VOLUME 86.3 fl (80-96); MEAN PLT VOLUME 8.1 fl (7.5-11.1); MONO % 7.1 % (3.8-10.2); NEUT % 66.7 % (42.8-82.8); PLATELET COUNT 269 10^3/uL (134-434); RBC 3.61 M/mm3 (3.60-5.2); RDW 14.7 % (11.6-15.6); WHITE BLOOD COUNT 6.1 K/mm3 (4.0-10.0)
[2020-11-20] MEDS: amLODIPine BESYLATE 10 MG TABLET (FP) PO SCH ×2 (07:00→09:17)
[2020-11-20 07:24] LABS: ALBUMIN 2.5 g/dl (3.4-5.0); BLOOD UREA NITROGEN 31.2 mg/dL (7-18); CALCIUM 8.5 mg/dL (8.5-10.1); MAGNESIUM 2.4 mg/dL (1.8-2.4)
[2020-11-20 07:27] LABS: CREATININE 1.6 mg/dL (0.55-1.3)
[2020-11-20 07:29] LABS: BILIRUBIN,TOTAL 0.4 mg/dL (0.2-1); TOT PROT 6.3 g/dl (6.4-8.2)
[2020-11-20] MEDS: FUROSEMIDE 40 MG/4 ML INJECTABLE VIAL IVPB SCH (09:16)
[2020-11-20] MEDS: ASPIRIN COATED 81 MG TABLET.EC PO SCH (09:16)
[2020-11-20] MEDS: ATORVASTATIN CA 40 MG TABLET (FP) PO SCH (21:44)
[2020-11-20] MEDS: INSULIN (LEVEMIR) 100 UNITS/ML UNITS SQ SCH (21:47)
[2020-11-21] MEDS: HEPARIN NA (PORCINE) 5,000 UNITS/ML 1ML VIAL SQ SCH ×3 (06:06→21:26)
[2020-11-21] MEDS: INSULIN SLIDING SCALE (NOVOLOG) 1 VIAL SQ SCH ×4 (06:07→21:31)
[2020-11-21] MEDS: FUROSEMIDE 40 MG/4 ML INJECTABLE VIAL IVPB SCH (10:10)
[2020-11-21] MEDS: amLODIPine BESYLATE 10 MG TABLET (FP) PO SCH (10:11)
[2020-11-21] MEDS: ASPIRIN COATED 81 MG TABLET.EC PO SCH (10:11)
[2020-11-21 12:15] LABS: CALCIUM 8.6 mg/dL (8.5-10.1)
[2020-11-21 12:16] LABS: ALBUMIN 2.6 g/dl (3.4-5.0); BLOOD UREA NITROGEN 36.6 mg/dL (7-18); MAGNESIUM 2.2 mg/dL (1.8-2.4)
[2020-11-21 12:18] LABS: URIC ACID 6.8 mg/dL (2.6-7.2)
[2020-11-21 12:19] LABS: CREATININE 1.5 mg/dL (0.55-1.3)
[2020-11-21 12:20] LABS: BILIRUBIN,TOTAL 0.2 mg/dL (0.2-1); TOT PROT 6.7 g/dl (6.4-8.2)
[2020-11-21] MEDS: LISINOPRIL 10 MG TABLET PO SCH (16:57)
[2020-11-21] MEDS: ATORVASTATIN CA 40 MG TABLET (FP) PO SCH (21:28)
[2020-11-21] MEDS: INSULIN (LEVEMIR) 100 UNITS/ML UNITS SQ SCH (21:29)
[2020-11-22] MEDS: HEPARIN NA (PORCINE) 5,000 UNITS/ML 1ML VIAL SQ SCH ×3 (06:22→21:38)
[2020-11-22] MEDS: INSULIN SLIDING SCALE (NOVOLOG) 1 VIAL SQ SCH ×4 (06:22→21:38)
[2020-11-22 08:55] LABS: EOS % 2.8 % (0-4.5); HEMATOCRIT 28.5 % (32.4-45.2); HEMOGLOBIN 9.6 GM/dL (10.7-15.3); LYMPH % 24.6 % (8-40); MCH 29.2 pg (25.7-33.7); MCHC 33.7 g/dl (32.0-36.0); MEAN CELL VOLUME 86.7 fl (80-96); MEAN PLT VOLUME 7.8 fl (7.5-11.1); MONO % 7.5 % (3.8-10.2); NEUT % 64.1 % (42.8-82.8); PLATELET COUNT 247 10^3/uL (134-434); RBC 3.29 M/mm3 (3.60-5.2); RDW 14.6 % (11.6-15.6); WHITE BLOOD COUNT 4.9 K/mm3 (4.0-10.0)
[2020-11-22 09:07] LABS: CALCIUM 8.3 mg/dL (8.5-10.1)
[2020-11-22 09:08] LABS: ALBUMIN 2.3 g/dl (3.4-5.0); BLOOD UREA NITROGEN 34.7 mg/dL (7-18); MAGNESIUM 2.3 mg/dL (1.8-2.4)
[2020-11-22 09:11] LABS: CREATININE 1.5 mg/dL (0.55-1.3)
[2020-11-22 09:12] LABS: BILIRUBIN,TOTAL 0.6 mg/dL (0.2-1); TOT PROT 5.9 g/dl (6.4-8.2)
[2020-11-22] MEDS: FUROSEMIDE 40 MG/4 ML INJECTABLE VIAL IVPB SCH (10:28)
[2020-11-22] MEDS: ASPIRIN COATED 81 MG TABLET.EC PO SCH (10:29)
[2020-11-22] MEDS: LISINOPRIL 10 MG TABLET PO SCH (10:29)
[2020-11-22] MEDS: amLODIPine BESYLATE 10 MG TABLET (FP) PO SCH (10:30)
[2020-11-22] MEDS ORDERED: INSULIN (NOVOLOG) ASPART 100 UNITS/ML 10ML VIAL ONE (21:10)
[2020-11-22] MEDS: ATORVASTATIN CA 40 MG TABLET (FP) PO SCH (21:38)
[2020-11-22] MEDS: INSULIN (LEVEMIR) 100 UNITS/ML UNITS SQ SCH (21:38)
[2020-11-23] MEDS: INSULIN SLIDING SCALE (NOVOLOG) 1 VIAL SQ SCH ×2 (06:28→11:10)
[2020-11-23] MEDS: HEPARIN NA (PORCINE) 5,000 UNITS/ML 1ML VIAL SQ SCH (06:28)
[2020-11-23] MEDS ORDERED: INSULIN (NOVOLOG) ASPART 100 UNITS/ML 10ML VIAL ONE (07:24)
[2020-11-23 08:52] VITALS: BP 183/79; PULSE 75; TEMP 98.6
[2020-11-23] MEDS: amLODIPine BESYLATE 10 MG TABLET (FP) PO SCH (09:31)
[2020-11-23] MEDS: LISINOPRIL 10 MG TABLET PO SCH (09:32)
[2020-11-23] MEDS: ASPIRIN COATED 81 MG TABLET.EC PO SCH (09:32)
[2020-11-23] MEDS ORDERED: FUROSEMIDE 40 MG TABLET (FP) PO SCH (10:00)
[2020-11-23 11:12] LABS: BASO % 0.6 % (0-2.0); EOS % 2.7 % (0-4.5); HEMATOCRIT 30.7 % (32.4-45.2); HEMOGLOBIN 9.9 GM/dL (10.7-15.3); LYMPH % 24.3 % (8-40); MCH 28.4 pg (25.7-33.7); MCHC 32.3 g/dl (32.0-36.0); MEAN CELL VOLUME 87.8 fl (80-96); MEAN PLT VOLUME 8.3 fl (7.5-11.1); MONO % 7.2 % (3.8-10.2); NEUT % 65.2 % (42.8-82.8); PLATELET COUNT 277 10^3/uL (134-434); RDW 14.6 % (11.6-15.6); WHITE BLOOD COUNT 5.5 K/mm3 (4.0-10.0)
[2020-11-23 11:36] LABS: ALBUMIN 2.5 g/dl (3.4-5.0); CALCIUM 8.5 mg/dL (8.5-10.1)
[2020-11-23 11:37] LABS: BLOOD UREA NITROGEN 34.9 mg/dL (7-18)
[2020-11-23 11:40] LABS: CREATININE 1.5 mg/dL (0.55-1.3)
[2020-11-23 11:41] LABS: BILIRUBIN,TOTAL 0.2 mg/dL (0.2-1); TOT PROT 6.5 g/dl (6.4-8.2)
== END 2020-11-23 14:06 | disposition home or self-care (01) | DRG 291 ==
LOC: JER 13:55 → JERBED 19:13 → J4W 11-18 00:09 → J6S 11-20 18:17
PROVIDERS: ADMIT Internal Medicine; ATTEND Nurse Practitioner Family
DX: I13.0 Hypertensive heart and chronic kidney disease with heart failure and stage 1 through stage 4 chronic kidney disease, or unspecified chronic kidney disease (principal); I50.33 Acute on chronic diastolic (congestive) heart failure; I69.351 Hemiplegia and hemiparesis following cerebral infarction affecting right dominant side; E11.51 Type 2 diabetes mellitus with diabetic peripheral angiopathy without gangrene; R07.89 Other chest pain; E11.22 Type 2 diabetes mellitus with diabetic chronic kidney disease; N18.9 Chronic kidney disease, unspecified; F03.90 Unspecified dementia, unspecified severity, without behavioral disturbance, psychotic disturbance, mood disturbance, and anxiety; R29.6 Repeated falls; E88.09 Other disorders of plasma-protein metabolism, not elsewhere classified; D64.9 Anemia, unspecified; E78.5 Hyperlipidemia, unspecified; I16.0 Hypertensive urgency; M19.042 Primary osteoarthritis, left hand; R41.82 Altered mental status, unspecified; N63.0 Unspecified lump in unspecified breast; Z91.14 Patient's other noncompliance with medication regimen; Z86.718 Personal history of other venous thrombosis and embolism
CPT/HCPCS: 36415; 71045-TC-FY; 71275-TC; 73130-TC-LT-FY; 76775-TC; 80053; 81003; 82550; 82728; 82962; 83036; 83540; 83550; 83735; 83880; 84100; 84484; 84550; 85025; 85027; 86704; 86803; 87086; 87186; 87340; 93005; 93010; 93970-TC; 97116-GP; 97161-GP; 99285-25; C9803; J1644; Q9967; U0003; U0005

== ENCOUNTER 2020-12-21 11:38 | Observation (INO) | payer OTHER ==
[2020-12-21] MEDS ORDERED: DIPHTH,PERTUSS(ACELL),TET 0.5 ML DISP.SYRIN IM ONE ×2 (13:20→13:56)
[2020-12-21] MEDS ORDERED: ACETAMINOPHEN 500 MG TABLET (FP) PO ONE (13:20)
[2020-12-21] MEDS ORDERED: LISINOPRIL 10 MG TABLET PO ONE (13:24)
[2020-12-21] MEDS ORDERED: FUROSEMIDE 40 MG TABLET (FP) PO ONE (13:25)
[2020-12-21] MEDS ORDERED: amLODIPine BESYLATE 10 MG TABLET (FP) PO ONE ×2 (13:25→18:18)
[2020-12-21] MEDS ORDERED: FUROSEMIDE 40 MG TABLET (FP) ONE (13:54)
[2020-12-21] MEDS ORDERED: LISINOPRIL 5 MG TABLET ONE (13:55)
[2020-12-21] MEDS ORDERED: METOPROLOL TARTRATE 50 MG TABLET (FP) ONE (13:59)
[2020-12-21] MEDS ORDERED: amLODIPine BESYLATE 5 MG TABLET (FP) ONE ×2 (14:00→18:29)
[2020-12-21] MEDS ORDERED: ACETAMINOPHEN 500 MG TABLET (FP) ONE (14:02)
[2020-12-21 15:51] LABS: BASO % 1.6 % (0-2.0); EOS % 2.2 % (0-4.5); HEMATOCRIT 32.1 % (32.4-45.2); HEMOGLOBIN 10.9 GM/dL (10.7-15.3); LYMPH % 24.4 % (8-40); MCHC 33.9 g/dl (32.0-36.0); MEAN CELL VOLUME 85.6 fl (80-96); MEAN PLT VOLUME 7.6 fl (7.5-11.1); MONO % 5.4 % (3.8-10.2); NEUT % 66.4 % (42.8-82.8); PLATELET COUNT 190 10^3/uL (134-434); RBC 3.75 M/mm3 (3.60-5.2); RDW 15.2 % (11.6-15.6); WHITE BLOOD COUNT 5.1 K/mm3 (4.0-10.0)
[2020-12-21 16:11] LABS: CHLORIDE 109 mmol/L (98-107); SODIUM 142 mmol/L (136-145)
[2020-12-21 16:13] LABS: ALBUMIN 3.2 g/dl (3.4-5.0); ANION GAP 8 MMOL/L (8-16); BLOOD UREA NITROGEN 32.6 mg/dL (7-18); CALCIUM 9.2 mg/dL (8.5-10.1); CO2 24 mmol/L (21-32)
[2020-12-21 16:14] LABS: GLUCOSE,RANDOM 132 mg/dL (74-106)
[2020-12-21 16:16] LABS: SGOT/AST 18 U/L (15-37); SGPT/ALT 26 U/L (13-61)
[2020-12-21 16:17] LABS: CREATININE 1.3 mg/dL (0.55-1.3)
[2020-12-21 16:18] LABS: BILIRUBIN,TOTAL 0.3 mg/dL (0.2-1); TOT PROT 7.4 g/dl (6.4-8.2)
[2020-12-21 16:19] LABS: ALK PHOS 138 U/L (45-117)
[2020-12-21 16:28] LABS: EPI CELLS 6 /uL (0-25.1); HYALINE CASTS 1 /uL (0-3.1); PH,URINE 5.5 (5.0-8.0); URINE APPEARANCE CLEAR; URINE BACTERIA 21 /uL (0-1359); URINE BILIRUBIN NEGATIVE (NEGATIVE); URINE COLOR YELLOW; URINE GLUCOSE (UA) TRACE (NEGATIVE); URINE KETONE NEGATIVE (NEGATIVE); URINE LEUK ESTERASE NEGATIVE (NEGATIVE); URINE NITRITE NEGATIVE (NEGATIVE); URINE PROTEIN 3+ (NEGATIVE); URINE RBC 16 /uL (0-23.9); URINE UROBILINOGEN 0.2 mg/dL (0.2-1.0); URINE WBC 12 /uL (0-25.8)
[2020-12-21] MEDS ORDERED: hydrALAZINE HCL 20 MG/ML VIAL IVPUSH ONE (23:07)
[2020-12-21] MEDS ORDERED: hydrALAZINE HCL 20 MG/ML VIAL ONE (23:15)
[2020-12-22 03:53] VITALS: BMI 26.1
[2020-12-22] MEDS: LISINOPRIL 10 MG TABLET PO SCH ×2 (07:01→09:51)
[2020-12-22] MEDS: HEPARIN NA (PORCINE) 5,000 UNITS/ML 1ML VIAL SQ SCH ×3 (07:01→21:27)
[2020-12-22] MEDS: INSULIN SLIDING SCALE (NOVOLOG) 1 VIAL SQ SCH ×4 (07:01→21:26)
[2020-12-22 09:50] LABS: HEMOGLOBIN 9.9 GM/dL (10.7-15.3); MCH 29.3 pg (25.7-33.7); MCHC 34.2 g/dl (32.0-36.0); MEAN CELL VOLUME 85.6 fl (80-96); MEAN PLT VOLUME 7.5 fl (7.5-11.1); PLATELET COUNT 190 10^3/uL (134-434); RBC 3.39 M/mm3 (3.60-5.2); RDW 14.9 % (11.6-15.6); WHITE BLOOD COUNT 4.7 K/mm3 (4.0-10.0)
[2020-12-22] MEDS: FUROSEMIDE 40 MG TABLET (FP) PO SCH (09:51)
[2020-12-22] MEDS: amLODIPine BESYLATE 10 MG TABLET (FP) PO SCH (09:51)
[2020-12-22] MEDS ORDERED: ASPIRIN COATED 81 MG TABLET.EC PO SCH (10:00)
[2020-12-22] MEDS ORDERED: LISINOPRIL 10 MG TABLET PO SCH (10:00)
[2020-12-22 10:18] LABS: CALCIUM 8.7 mg/dL (8.5-10.1)
[2020-12-22 10:19] LABS: ALBUMIN 2.8 g/dl (3.4-5.0); BLOOD UREA NITROGEN 32.6 mg/dL (7-18); MAGNESIUM 1.9 mg/dL (1.8-2.4)
[2020-12-22 10:22] LABS: CREATININE 1.5 mg/dL (0.55-1.3)
[2020-12-22 10:23] LABS: PHOSPHOROUS 3.5 mg/dL (2.5-4.9)
[2020-12-22 10:24] LABS: BILIRUBIN,TOTAL 0.3 mg/dL (0.2-1); TOT PROT 6.6 g/dl (6.4-8.2)
[2020-12-22] MEDS: ATORVASTATIN CA 40 MG TABLET (FP) PO SCH (21:27)
[2020-12-23] MEDS: HEPARIN NA (PORCINE) 5,000 UNITS/ML 1ML VIAL SQ SCH ×3 (06:30→21:50)
[2020-12-23] MEDS: INSULIN SLIDING SCALE (NOVOLOG) 1 VIAL SQ SCH ×4 (06:31→21:49)
[2020-12-23] MEDS: FUROSEMIDE 40 MG TABLET (FP) PO SCH (09:02)
[2020-12-23] MEDS: LISINOPRIL 10 MG TABLET PO SCH (09:02)
[2020-12-23] MEDS: amLODIPine BESYLATE 10 MG TABLET (FP) PO SCH (09:02)
[2020-12-23] MEDS ORDERED: LISINOPRIL 10 MG TABLET PO STA (09:54)
[2020-12-23] MEDS ORDERED: LABETALOL HCL 200 MG TABLET (FP) PO ONE (12:24)
[2020-12-23] MEDS: ATORVASTATIN CA 40 MG TABLET (FP) PO SCH (21:49)
[2020-12-23] MEDS ORDERED: CARVEDILOL 12.5 MG TABLET (FP) PO SCH (22:00)
[2020-12-24] MEDS: INSULIN SLIDING SCALE (NOVOLOG) 1 VIAL SQ SCH ×4 (06:03→21:33)
[2020-12-24] MEDS: HEPARIN NA (PORCINE) 5,000 UNITS/ML 1ML VIAL SQ SCH ×3 (06:05→21:34)
[2020-12-24 09:02] LABS: CALCIUM 8.7 mg/dL (8.5-10.1)
[2020-12-24 09:04] LABS: BLOOD UREA NITROGEN 35.7 mg/dL (7-18)
[2020-12-24 09:07] LABS: CREATININE 1.7 mg/dL (0.55-1.3)
[2020-12-24] MEDS: LISINOPRIL 10 MG TABLET PO SCH (09:40)
[2020-12-24] MEDS: FUROSEMIDE 40 MG TABLET (FP) PO SCH (09:40)
[2020-12-24] MEDS: CARVEDILOL 25 MG TABLET (FP) PO SCH ×2 (09:40→21:33)
[2020-12-24] MEDS: amLODIPine BESYLATE 10 MG TABLET (FP) PO SCH (09:40)
[2020-12-24] MEDS: hydrALAZINE HCL 10 MG TABLET PO SCH ×2 (15:13→21:33)
[2020-12-24] MEDS: ATORVASTATIN CA 40 MG TABLET (FP) PO SCH (21:33)
[2020-12-25] MEDS: HEPARIN NA (PORCINE) 5,000 UNITS/ML 1ML VIAL SQ SCH ×2 (06:13→15:27)
[2020-12-25] MEDS: INSULIN SLIDING SCALE (NOVOLOG) 1 VIAL SQ SCH ×3 (06:13→17:00)
[2020-12-25] MEDS: CARVEDILOL 25 MG TABLET (FP) PO SCH (10:34)
[2020-12-25] MEDS: amLODIPine BESYLATE 10 MG TABLET (FP) PO SCH (10:34)
[2020-12-25] MEDS: LISINOPRIL 10 MG TABLET PO SCH (10:34)
[2020-12-25] MEDS: hydrALAZINE HCL 10 MG TABLET PO SCH (10:34)
[2020-12-25 10:59] LABS: BLOOD UREA NITROGEN 37.2 mg/dL (7-18); CALCIUM 8.8 mg/dL (8.5-10.1)
[2020-12-25 11:05] LABS: CREATININE 1.7 mg/dL (0.55-1.3)
[2020-12-25] MEDS ORDERED: hydrALAZINE HCL 10 MG TABLET PO ONE (11:45)
[2020-12-25 15:53] VITALS: BP 159/70; PULSE 66; TEMP 98.3
[2020-12-25] MEDS ORDERED: hydrALAZINE HCL 25 MG TABLET (FP) PO SCH (22:00)
[2020-12-26] MEDS ORDERED: LISINOPRIL 20 MG TABLET PO SCH (22:00)
== END 2020-12-25 17:22 | disposition home or self-care (01) ==
LOC: JER 11:38 → UNDOADMOB 18:10 → JERBED 18:10 → OBSVTOIN 23:16 → INTOOBSV 23:16 → J5S 12-22 02:39 → JERBED 12-22 02:39 → J5S 12-22 11:10 → JERBED 12-22 11:10 → J5S 12-22 19:30
PROVIDERS: ADMIT Internal Medicine; ATTEND Internal Medicine
PROC: 3E0234Z Introduction of Serum, Toxoid and Vaccine into Muscle, Percutaneous Approach (ICD-10-PCS; principal; 2020-12-22)
PROC: 3E033GC Introduction of Other Therapeutic Substance into Peripheral Vein, Percutaneous Approach (ICD-10-PCS; 2020-12-22)
DX: I13.10 Hypertensive heart and chronic kidney disease without heart failure, with stage 1 through stage 4 chronic kidney disease, or unspecified chronic kidney disease (principal); I16.0 Hypertensive urgency; E11.22 Type 2 diabetes mellitus with diabetic chronic kidney disease; D64.9 Anemia, unspecified; R29.6 Repeated falls; R55 Syncope and collapse; Z79.4 Long term (current) use of insulin; I73.9 Peripheral vascular disease, unspecified; R80.9 Proteinuria, unspecified; Z86.73 Personal history of transient ischemic attack (TIA), and cerebral infarction without residual deficits; F03.90 Unspecified dementia, unspecified severity, without behavioral disturbance, psychotic disturbance, mood disturbance, and anxiety; W18.39XA Other fall on same level, initial encounter; Y93.89 Activity, other specified; Y92.89 Other specified places as the place of occurrence of the external cause
CPT/HCPCS: 36415; 70450-TC; 71046-TC-FY; 72125-TC; 73562-TC-RT-FY; 80048; 80053; 81003; 82550; 82553; 82962; 83735; 84100; 84484; 85025; 85027; 87086; 90471; 90715; 93005; 93010; 96374; 99285-25; C9803; G0378; J1644; U0003; U0005

== ENCOUNTER 2021-02-25 17:40 | Inpatient (IN) | payer OTHER ==
[2021-02-25] MEDS ORDERED: LABETALOL HCL 5 MG/1 ML (100MG/20 ML VIAL) IVPUSH ONE (18:34)
[2021-02-25] MEDS ORDERED: amLODIPine BESYLATE 10 MG TABLET (FP) PO ONE (18:55)
[2021-02-25] MEDS ORDERED: hydrALAZINE HCL 10 MG TABLET PO ONE (18:55)
[2021-02-25 19:26] LABS: CHLORIDE 111 mmol/L (98-107); SODIUM 142 mmol/L (136-145)
[2021-02-25 19:28] LABS: ANION GAP 8 MMOL/L (8-16); CALCIUM 8.5 mg/dL (8.5-10.1); CO2 23 mmol/L (21-32)
[2021-02-25 19:29] LABS: ALBUMIN 2.9 g/dl (3.4-5.0); BLOOD UREA NITROGEN 33.9 mg/dL (7-18)
[2021-02-25] MEDS ORDERED: hydrALAZINE HCL 25 MG TABLET (FP) ONE (19:31)
[2021-02-25] MEDS ORDERED: amLODIPine BESYLATE 5 MG TABLET (FP) ONE (19:31)
[2021-02-25 19:32] LABS: CREATININE 1.9 mg/dL (0.55-1.3); SGOT/AST 21 U/L (15-37); SGPT/ALT 22 U/L (13-61)
[2021-02-25 19:33] LABS: BILIRUBIN,TOTAL 0.3 mg/dL (0.2-1); TOT PROT 7.1 g/dl (6.4-8.2)
[2021-02-25 19:34] LABS: ALK PHOS 137 U/L (45-117)
[2021-02-25 20:35] LABS: GLUCOSE,RANDOM 155 mg/dL (74-106)
[2021-02-25 21:07] LABS: EOS % 2.3 % (0-4.5); HEMATOCRIT 32.5 % (32.4-45.2); HEMOGLOBIN 10.7 GM/dL (10.7-15.3); LYMPH % 24.8 % (8-40); MCH 29.1 pg (25.7-33.7); MEAN CELL VOLUME 88.1 fl (80-96); MEAN PLT VOLUME 7.8 fl (7.5-11.1); MONO % 5.9 % (3.8-10.2); PLATELET COUNT 211 10^3/uL (134-434); RBC 3.69 M/mm3 (3.60-5.2); RDW 16.3 % (11.6-15.6); WHITE BLOOD COUNT 5.5 K/mm3 (4.0-10.0)
[2021-02-26] MEDS ORDERED: LISINOPRIL 20 MG TABLET PO ONE (01:11)
[2021-02-26] MEDS ORDERED: LISINOPRIL 20 MG TABLET ONE (01:16)
[2021-02-26] MEDS ORDERED: hydrALAZINE HCL 20 MG/ML VIAL IVPUSH ONE (01:42)
[2021-02-26] MEDS ORDERED: ACETAMINOPHEN 325 MG TABLET (FP) PO PRN (01:42)
[2021-02-26] MEDS ORDERED: hydrALAZINE HCL 20 MG/ML VIAL ONE (01:49)
[2021-02-26 05:53] LABS: HEMATOCRIT 29.1 % (32.4-45.2); HEMOGLOBIN 9.8 GM/dL (10.7-15.3); MCH 29.5 pg (25.7-33.7); MCHC 33.8 g/dl (32.0-36.0); MEAN CELL VOLUME 87.2 fl (80-96); MEAN PLT VOLUME 7.7 fl (7.5-11.1); PLATELET COUNT 206 10^3/uL (134-434); RBC 3.33 M/mm3 (3.60-5.2); WHITE BLOOD COUNT 4.9 K/mm3 (4.0-10.0)
[2021-02-26 06:16] LABS: ALBUMIN 2.6 g/dl (3.4-5.0); CALCIUM 8.1 mg/dL (8.5-10.1)
[2021-02-26 06:18] LABS: MAGNESIUM 1.7 mg/dL (1.8-2.4)
[2021-02-26 06:20] LABS: CREATININE 1.7 mg/dL (0.55-1.3); PHOSPHOROUS 3.2 mg/dL (2.5-4.9)
[2021-02-26 06:21] LABS: BILIRUBIN,TOTAL 0.2 mg/dL (0.2-1); TOT PROT 6.5 g/dl (6.4-8.2)
[2021-02-26 09:03] VITALS: BMI 26.1
[2021-02-26] MEDS: FUROSEMIDE 40 MG TABLET (FP) PO SCH (09:12)
[2021-02-26] MEDS: CARVEDILOL 25 MG TABLET (FP) PO SCH ×2 (09:12→21:56)
[2021-02-26] MEDS: hydrALAZINE HCL 10 MG TABLET PO SCH ×2 (09:12→21:56)
[2021-02-26] MEDS: ASPIRIN 81 MG CHEWABLE TABLETS PO SCH (09:12)
[2021-02-26] MEDS: POLYETHYLENE GLYCOL (HEALTHYLAX) 3350 17 GM PACKET PO SCH ×3 (09:13→21:56)
[2021-02-26] MEDS: HEPARIN NA (PORCINE) 5,000 UNITS/ML 1ML VIAL SQ SCH ×3 (09:13→21:56)
[2021-02-26] MEDS: amLODIPine BESYLATE 5 MG TABLET (FP) PO SCH (09:13)
[2021-02-26] MEDS: INSULIN SLIDING SCALE (NOVOLOG) 1 VIAL SQ SCH ×4 (09:20→21:56)
[2021-02-26] MEDS ORDERED: PNEUMOC 13-VAL CONJ-DIP CRM/PF 0.5 ML DISP.SYRIN IM ONE (12:00)
[2021-02-26] MEDS ORDERED: MAGNESIUM SULF 50% (8.12 MEQ/2 ML-1 GM VIAL) IVPB ONE (15:36)
[2021-02-26] MEDS: ATORVASTATIN CA 40 MG TABLET (FP) PO SCH (21:56)
[2021-02-27] MEDS: HEPARIN NA (PORCINE) 5,000 UNITS/ML 1ML VIAL SQ SCH ×4 (05:16→21:35)
[2021-02-27] MEDS: POLYETHYLENE GLYCOL (HEALTHYLAX) 3350 17 GM PACKET PO SCH ×3 (05:17→21:37)
[2021-02-27] MEDS: INSULIN SLIDING SCALE (NOVOLOG) 1 VIAL SQ SCH ×4 (06:00→21:40)
[2021-02-27 06:15] LABS: EPI CELLS 10 /uL (0-25.1); HYALINE CASTS 1 /uL (0-3.1); URINE APPEARANCE CLEAR; URINE BACTERIA 182 /uL (0-1359); URINE BILIRUBIN NEGATIVE (NEGATIVE); URINE COLOR YELLOW; URINE GLUCOSE (UA) NEGATIVE (NEGATIVE); URINE KETONE NEGATIVE (NEGATIVE); URINE LEUK ESTERASE 1+ (NEGATIVE); URINE NITRITE NEGATIVE (NEGATIVE); URINE PROTEIN 2+ (NEGATIVE); URINE UROBILINOGEN 0.2 mg/dL (0.2-1.0); URINE WBC 68 /uL (0-25.8)
[2021-02-27 08:44] LABS: BASO % 0.9 % (0-2.0); EOS % 3.4 % (0-4.5); HEMOGLOBIN 10.9 GM/dL (10.7-15.3); LYMPH % 21.6 % (8-40); MCH 29.1 pg (25.7-33.7); MEAN CELL VOLUME 88.3 fl (80-96); MEAN PLT VOLUME 8.3 fl (7.5-11.1); MONO % 5.5 % (3.8-10.2); NEUT % 68.6 % (42.8-82.8); PLATELET COUNT 203 10^3/uL (134-434); RBC 3.73 M/mm3 (3.60-5.2); RDW 16.3 % (11.6-15.6); WHITE BLOOD COUNT 4.6 K/mm3 (4.0-10.0)
[2021-02-27 08:55] LABS: EPI CELLS 5 /uL (0-25.1); HYALINE CASTS 3 /uL (0-3.1); URINE APPEARANCE CLEAR; URINE BACTERIA 108 /uL (0-1359); URINE BILIRUBIN NEGATIVE (NEGATIVE); URINE COLOR YELLOW; URINE GLUCOSE (UA) TRACE (NEGATIVE); URINE KETONE NEGATIVE (NEGATIVE); URINE LEUK ESTERASE 2+ (NEGATIVE); URINE NITRITE NEGATIVE (NEGATIVE); URINE PROTEIN 3+ (NEGATIVE); URINE RBC 8 /uL (0-23.9); URINE UROBILINOGEN 0.2 mg/dL (0.2-1.0); URINE WBC 113 /uL (0-25.8)
[2021-02-27 09:07] LABS: ALBUMIN 2.8 g/dl (3.4-5.0); BLOOD UREA NITROGEN 32.7 mg/dL (7-18); MAGNESIUM 2.3 mg/dL (1.8-2.4)
[2021-02-27 09:10] LABS: CREATININE 1.4 mg/dL (0.55-1.3); PHOSPHOROUS 3.9 mg/dL (2.5-4.9)
[2021-02-27 09:11] LABS: BILIRUBIN,TOTAL 0.3 mg/dL (0.2-1)
[2021-02-27] MEDS: CARVEDILOL 25 MG TABLET (FP) PO SCH ×2 (09:38→21:36)
[2021-02-27] MEDS: FUROSEMIDE 40 MG TABLET (FP) PO SCH (09:38)
[2021-02-27] MEDS: LISINOPRIL 20 MG TABLET PO SCH (09:38)
[2021-02-27] MEDS: ESCITALOPRAM OXALATE 10 MG TABLET PO SCH (09:38)
[2021-02-27] MEDS: ASPIRIN 81 MG CHEWABLE TABLETS PO SCH (09:38)
[2021-02-27] MEDS: amLODIPine BESYLATE 5 MG TABLET (FP) PO SCH (09:38)
[2021-02-27] MEDS: hydrALAZINE HCL 10 MG TABLET PO SCH ×2 (09:38→21:36)
[2021-02-27 09:46] LABS: URINE RBC 8.1 /uL (0-23.9); YEAST MANY (NEGATIVE)
[2021-02-27] MEDS ORDERED: cefTRIAXone SODIUM 1 GM VIAL ONE (13:17)
[2021-02-27] MEDS ORDERED: DEXTROSE 5%-WATER - 50 ML IVPB ONE (13:17)
[2021-02-27] MEDS: CEFTRIAXONE 1 GM in DEXTROSE 5%-WATER - 50 ML IVPB SCH (13:31)
[2021-02-27] MEDS: NITROFURANTOIN MACROCRYSTAL 50 MG CAPSULE (FP) PO SCH ×2 (15:28→17:54)
[2021-02-27] MEDS: ATORVASTATIN CA 40 MG TABLET (FP) PO SCH (21:36)
[2021-02-28] MEDS: NITROFURANTOIN MACROCRYSTAL 50 MG CAPSULE (FP) PO SCH ×4 (00:03→17:42)
[2021-02-28] MEDS: HEPARIN NA (PORCINE) 5,000 UNITS/ML 1ML VIAL SQ SCH ×2 (06:13→14:20)
[2021-02-28] MEDS: INSULIN SLIDING SCALE (NOVOLOG) 1 VIAL SQ SCH ×4 (06:17→17:00)
[2021-02-28] MEDS: POLYETHYLENE GLYCOL (HEALTHYLAX) 3350 17 GM PACKET PO SCH ×2 (06:21→14:21)
[2021-02-28 08:57] LABS: EOS % 3.7 % (0-4.5); HEMATOCRIT 26.6 % (32.4-45.2); HEMOGLOBIN 8.9 GM/dL (10.7-15.3); LYMPH % 28.9 % (8-40); MCH 29.5 pg (25.7-33.7); MCHC 33.5 g/dl (32.0-36.0); MEAN CELL VOLUME 87.9 fl (80-96); MEAN PLT VOLUME 8.4 fl (7.5-11.1); MONO % 7.2 % (3.8-10.2); NEUT % 59.2 % (42.8-82.8); PLATELET COUNT 185 10^3/uL (134-434); RBC 3.02 M/mm3 (3.60-5.2); RDW 16.4 % (11.6-15.6); WHITE BLOOD COUNT 4.2 K/mm3 (4.0-10.0)
[2021-02-28 09:34] LABS: ALBUMIN 2.3 g/dl (3.4-5.0); CALCIUM 8.4 mg/dL (8.5-10.1)
[2021-02-28 09:35] LABS: BLOOD UREA NITROGEN 32.6 mg/dL (7-18)
[2021-02-28 09:37] LABS: CREATININE 1.4 mg/dL (0.55-1.3)
[2021-02-28 09:39] LABS: BILIRUBIN,TOTAL 0.2 mg/dL (0.2-1); TOT PROT 5.9 g/dl (6.4-8.2)
[2021-02-28] MEDS ORDERED: cefTRIAXone SODIUM 1 GM VIAL ONE (09:48)
[2021-02-28] MEDS ORDERED: DEXTROSE 5%-WATER - 50 ML IVPB ONE (09:48)
[2021-02-28] MEDS: ESCITALOPRAM OXALATE 10 MG TABLET PO SCH (09:56)
[2021-02-28] MEDS: amLODIPine BESYLATE 5 MG TABLET (FP) PO SCH (09:56)
[2021-02-28] MEDS: FUROSEMIDE 40 MG TABLET (FP) PO SCH (09:57)
[2021-02-28] MEDS: CARVEDILOL 25 MG TABLET (FP) PO SCH (09:57)
[2021-02-28] MEDS: ASPIRIN 81 MG CHEWABLE TABLETS PO SCH (09:57)
[2021-02-28] MEDS: LISINOPRIL 20 MG TABLET PO SCH (09:57)
[2021-02-28] MEDS: CEFTRIAXONE 1 GM in DEXTROSE 5%-WATER - 50 ML IVPB SCH (09:57)
[2021-02-28] MEDS ORDERED: hydrALAZINE HCL 10 MG TABLET PO SCH (10:00)
[2021-02-28] MEDS ORDERED: INSULIN (NOVOLOG) ASPART 100 UNITS/ML 10ML VIAL ONE (11:38)
[2021-02-28 14:20] VITALS: BP 134/67; PULSE 66; TEMP 97.7
== END 2021-02-28 19:48 | disposition home or self-care (01) | DRG 305 ==
LOC: JER 17:40 → JERBED 21:53 → J6S 02-26 07:23
PROVIDERS: ADMIT Internal Medicine
DX: I16.0 Hypertensive urgency (principal); I50.32 Chronic diastolic (congestive) heart failure; I69.354 Hemiplegia and hemiparesis following cerebral infarction affecting left non-dominant side; N39.0 Urinary tract infection, site not specified; I13.0 Hypertensive heart and chronic kidney disease with heart failure and stage 1 through stage 4 chronic kidney disease, or unspecified chronic kidney disease; E11.22 Type 2 diabetes mellitus with diabetic chronic kidney disease; N18.9 Chronic kidney disease, unspecified; F31.9 Bipolar disorder, unspecified; E78.5 Hyperlipidemia, unspecified; M54.2 Cervicalgia; M54.9 Dorsalgia, unspecified; F03.90 Unspecified dementia, unspecified severity, without behavioral disturbance, psychotic disturbance, mood disturbance, and anxiety; E11.51 Type 2 diabetes mellitus with diabetic peripheral angiopathy without gangrene; K59.00 Constipation, unspecified; G47.00 Insomnia, unspecified; E04.1 Nontoxic single thyroid nodule; B95.1 Streptococcus, group B, as the cause of diseases classified elsewhere; Z86.718 Personal history of other venous thrombosis and embolism
CPT/HCPCS: 36415; 70450-TC; 71045-TC-FY; 80053; 81003; 82550; 82553; 82962; 83735; 84100; 84443; 84484; 85025; 85027; 87077; 87086; 90670; 93005; 93010; 93880-TC; 97116-GP; 97161-GP; 99285-25; C9803; J1644; U0003; U0005

== ENCOUNTER 2021-02-28 21:25 | Observation (INO) | payer OTHER ==
[2021-02-28 22:22] VITALS: BMI 28.1
[2021-02-28 23:44] LABS: EOS % 3.2 % (0-4.5); HEMATOCRIT 31.8 % (32.4-45.2); HEMOGLOBIN 10.4 GM/dL (10.7-15.3); LYMPH % 20.5 % (8-40); MCH 28.6 pg (25.7-33.7); MCHC 32.6 g/dl (32.0-36.0); MEAN CELL VOLUME 87.8 fl (80-96); MEAN PLT VOLUME 7.9 fl (7.5-11.1); NEUT % 69.3 % (42.8-82.8); PLATELET COUNT 228 10^3/uL (134-434); RBC 3.62 M/mm3 (3.60-5.2); RDW 16.7 % (11.6-15.6); WHITE BLOOD COUNT 6.3 K/mm3 (4.0-10.0)
[2021-02-28] MEDS ORDERED: hydrALAZINE HCL 10 MG TABLET PO ONE (23:50)
[2021-03-01 00:05] LABS: CHLORIDE 108 mmol/L (98-107); SODIUM 141 mmol/L (136-145)
[2021-03-01 00:07] LABS: BLOOD UREA NITROGEN 41.3 mg/dL (7-18); CALCIUM 9.4 mg/dL (8.5-10.1)
[2021-03-01 00:08] LABS: ANION GAP 5 MMOL/L (8-16); CO2 28 mmol/L (21-32); GLUCOSE,RANDOM 187 mg/dL (74-106)
[2021-03-01 00:11] LABS: CREATININE 1.8 mg/dL (0.55-1.3); SGOT/AST 34 U/L (15-37); SGPT/ALT 46 U/L (13-61)
[2021-03-01 00:12] LABS: BILIRUBIN,TOTAL 0.2 mg/dL (0.2-1); TOT PROT 7.7 g/dl (6.4-8.2)
[2021-03-01 00:26] LABS: ALBUMIN 3.2 g/dl (3.4-5.0); ALK PHOS 172 U/L (45-117)
[2021-03-01] MEDS ORDERED: LABETALOL HCL 5 MG/1 ML (100MG/20 ML VIAL) IVPUSH ONE ×3 (02:32→05:28)
[2021-03-01] MEDS ORDERED: PATIENT'S OWN MEDICATION (NON-FORMULARY) (Lisinopril [Zestril] 40 MG Tablet) PO SCH (05:36)
[2021-03-01] MEDS ORDERED: amLODIPine BESYLATE 5 MG TABLET (FP) PO ONE (05:36)
[2021-03-01] MEDS ORDERED: amLODIPine BESYLATE 5 MG TABLET (FP) ONE (05:44)
[2021-03-01] MEDS ORDERED: LISINOPRIL 20 MG TABLET ONE ×2 (05:45→09:02)
[2021-03-01] MEDS ORDERED: hydrALAZINE HCL 10 MG TABLET PO SCH ×2 (06:00→10:00)
[2021-03-01] MEDS ORDERED: ACETAMINOPHEN 325 MG TABLET (FP) PO PRN (06:20)
[2021-03-01 06:28] LABS: EOS % 3.1 % (0-4.5); HEMATOCRIT 29.5 % (32.4-45.2); HEMOGLOBIN 9.8 GM/dL (10.7-15.3); LYMPH % 25.8 % (8-40); MCH 29.3 pg (25.7-33.7); MCHC 33.2 g/dl (32.0-36.0); MEAN CELL VOLUME 88.2 fl (80-96); MEAN PLT VOLUME 8.3 fl (7.5-11.1); MONO % 6.8 % (3.8-10.2); NEUT % 63.3 % (42.8-82.8); PLATELET COUNT 204 10^3/uL (134-434); RBC 3.35 M/mm3 (3.60-5.2); RDW 16.3 % (11.6-15.6); WHITE BLOOD COUNT 5.2 K/mm3 (4.0-10.0)
[2021-03-01 06:47] LABS: CHLORIDE 110 mmol/L (98-107); SODIUM 139 mmol/L (136-145)
[2021-03-01 06:52] LABS: ALBUMIN 2.6 g/dl (3.4-5.0); ANION GAP 7 MMOL/L (8-16); BLOOD UREA NITROGEN 39.3 mg/dL (7-18); CALCIUM 8.6 mg/dL (8.5-10.1); CO2 22 mmol/L (21-32); GLUCOSE,RANDOM 185 mg/dL (74-106)
[2021-03-01 06:55] LABS: CREATININE 1.5 mg/dL (0.55-1.3); PHOSPHOROUS 4.3 mg/dL (2.5-4.9); SGOT/AST 34 U/L (15-37); SGPT/ALT 46 U/L (13-61)
[2021-03-01 06:56] LABS: BILIRUBIN,TOTAL 0.2 mg/dL (0.2-1)
[2021-03-01 06:57] LABS: TOT PROT 6.7 g/dl (6.4-8.2)
[2021-03-01 07:19] LABS: ALK PHOS 135 U/L (45-117)
[2021-03-01] MEDS ORDERED: PIPERACILLIN/TAZOB 2.25 GM 2.25 GM/50 ML BAG IVPB ONE (07:34)
[2021-03-01] MEDS: PIPERACILLIN/TAZOB 2.25 GM 2.25 GM in DEXTROSE 5%-WATER - 50 ML IVPB SCH ×2 (07:39→15:08)
[2021-03-01] MEDS: INSULIN SLIDING SCALE (NOVOLOG) 1 VIAL SQ SCH ×2 (08:08→17:12)
[2021-03-01] MEDS ORDERED: ASPIRIN 81 MG CHEWABLE TABLETS ONE (08:51)
[2021-03-01] MEDS ORDERED: FUROSEMIDE 40 MG TABLET (FP) ONE (08:52)
[2021-03-01] MEDS ORDERED: CARVEDILOL 12.5 MG TABLET (FP) ONE (08:52)
[2021-03-01] MEDS ORDERED: ESCITALOPRAM OXALATE 10 MG TABLET ONE (08:52)
[2021-03-01] MEDS: ESCITALOPRAM OXALATE 10 MG TABLET PO SCH (09:19)
[2021-03-01] MEDS: CARVEDILOL 25 MG TABLET (FP) PO SCH ×2 (09:19→22:00)
[2021-03-01] MEDS: FUROSEMIDE 40 MG TABLET (FP) PO SCH (09:19)
[2021-03-01] MEDS: ASPIRIN 81 MG CHEWABLE TABLETS PO SCH (09:19)
[2021-03-01] MEDS: LISINOPRIL 20 MG TABLET PO SCH (09:20)
[2021-03-01] MEDS ORDERED: amLODIPine BESYLATE 10 MG TABLET (FP) PO SCH (10:00)
[2021-03-01] MEDS: HEPARIN NA (PORCINE) 5,000 UNITS/ML 1ML VIAL SQ SCH ×2 (14:58→22:00)
[2021-03-01] MEDS ORDERED: PIPERACILLIN/TAZOBACTAM 2.25 GM VIAL IVPB ONE (15:02)
[2021-03-01] MEDS ORDERED: DEXTROSE 5%-WATER - 50 ML IVPB ONE (15:02)
[2021-03-01] MEDS: ATORVASTATIN CA 40 MG TABLET (FP) PO SCH (22:00)
[2021-03-01] MEDS: NITROFURANTOIN MACROCRYSTAL 50 MG CAPSULE (FP) PO SCH (22:00)
[2021-03-02] MEDS: INSULIN SLIDING SCALE (NOVOLOG) 1 VIAL SQ SCH ×6 (00:35→21:58)
[2021-03-02] MEDS: NITROFURANTOIN MACROCRYSTAL 50 MG CAPSULE (FP) PO SCH ×4 (00:37→17:13)
[2021-03-02] MEDS ORDERED: PIPERACILLIN/TAZOB 2.25 GM 2.25 GM in DEXTROSE 5%-WATER - 50 ML IVPB SCH (03:00)
[2021-03-02] MEDS: HEPARIN NA (PORCINE) 5,000 UNITS/ML 1ML VIAL SQ SCH ×3 (05:37→21:49)
[2021-03-02 08:55] LABS: BASO % 0.8 % (0-2.0); EOS % 3.9 % (0-4.5); HEMATOCRIT 27.8 % (32.4-45.2); HEMOGLOBIN 9.2 GM/dL (10.7-15.3); LYMPH % 20.9 % (8-40); MCH 28.9 pg (25.7-33.7); MCHC 33.2 g/dl (32.0-36.0); MEAN CELL VOLUME 87.3 fl (80-96); MEAN PLT VOLUME 7.8 fl (7.5-11.1); MONO % 7.3 % (3.8-10.2); NEUT % 67.1 % (42.8-82.8); PLATELET COUNT 194 10^3/uL (134-434); RBC 3.19 M/mm3 (3.60-5.2); RDW 16.4 % (11.6-15.6); WHITE BLOOD COUNT 3.8 K/mm3 (4.0-10.0)
[2021-03-02 09:21] LABS: CALCIUM 8.6 mg/dL (8.5-10.1)
[2021-03-02 09:22] LABS: ALBUMIN 2.4 g/dl (3.4-5.0); BLOOD UREA NITROGEN 35.6 mg/dL (7-18); MAGNESIUM 1.8 mg/dL (1.8-2.4)
[2021-03-02 09:25] LABS: CREATININE 1.6 mg/dL (0.55-1.3); PHOSPHOROUS 3.8 mg/dL (2.5-4.9)
[2021-03-02 09:26] LABS: BILIRUBIN,TOTAL 0.2 mg/dL (0.2-1)
[2021-03-02 09:27] LABS: TOT PROT 6.3 g/dl (6.4-8.2)
[2021-03-02] MEDS: FUROSEMIDE 40 MG TABLET (FP) PO SCH (09:27)
[2021-03-02] MEDS: ASPIRIN 81 MG CHEWABLE TABLETS PO SCH (09:27)
[2021-03-02] MEDS: LISINOPRIL 20 MG TABLET PO SCH (09:27)
[2021-03-02] MEDS: CARVEDILOL 25 MG TABLET (FP) PO SCH ×2 (09:27→21:49)
[2021-03-02] MEDS: ESCITALOPRAM OXALATE 10 MG TABLET PO SCH (09:27)
[2021-03-02] MEDS: amLODIPine BESYLATE 10 MG TABLET (FP) PO SCH (11:51)
[2021-03-02] MEDS: hydrALAZINE HCL 10 MG TABLET PO SCH ×2 (14:07→21:49)
[2021-03-02] MEDS: ATORVASTATIN CA 40 MG TABLET (FP) PO SCH (21:49)
[2021-03-03] MEDS: NITROFURANTOIN MACROCRYSTAL 50 MG CAPSULE (FP) PO SCH ×4 (00:53→17:17)
[2021-03-03] MEDS: hydrALAZINE HCL 10 MG TABLET PO SCH (05:56)
[2021-03-03] MEDS: HEPARIN NA (PORCINE) 5,000 UNITS/ML 1ML VIAL SQ SCH ×3 (05:56→21:47)
[2021-03-03] MEDS: INSULIN SLIDING SCALE (NOVOLOG) 1 VIAL SQ SCH ×4 (06:30→21:48)
[2021-03-03 08:51] LABS: BASO % 1.1 % (0-2.0); EOS % 3.6 % (0-4.5); HEMATOCRIT 27.7 % (32.4-45.2); HEMOGLOBIN 9.2 GM/dL (10.7-15.3); LYMPH % 30.8 % (8-40); MCH 29.4 pg (25.7-33.7); MCHC 33.3 g/dl (32.0-36.0); MEAN CELL VOLUME 88.4 fl (80-96); MEAN PLT VOLUME 8.1 fl (7.5-11.1); MONO % 8.7 % (3.8-10.2); NEUT % 55.8 % (42.8-82.8); PLATELET COUNT 196 10^3/uL (134-434); RBC 3.13 M/mm3 (3.60-5.2); RDW 16.6 % (11.6-15.6); WHITE BLOOD COUNT 4.1 K/mm3 (4.0-10.0)
[2021-03-03 09:16] LABS: ALBUMIN 2.6 g/dl (3.4-5.0); BLOOD UREA NITROGEN 35.2 mg/dL (7-18); CALCIUM 8.7 mg/dL (8.5-10.1); MAGNESIUM 2.1 mg/dL (1.8-2.4)
[2021-03-03 09:20] LABS: CREATININE 1.6 mg/dL (0.55-1.3)
[2021-03-03] MEDS: ASPIRIN 81 MG CHEWABLE TABLETS PO SCH (09:21)
[2021-03-03] MEDS: FUROSEMIDE 40 MG TABLET (FP) PO SCH (09:21)
[2021-03-03] MEDS: amLODIPine BESYLATE 10 MG TABLET (FP) PO SCH (09:21)
[2021-03-03] MEDS: ESCITALOPRAM OXALATE 10 MG TABLET PO SCH (09:21)
[2021-03-03] MEDS: LISINOPRIL 20 MG TABLET PO SCH (09:21)
[2021-03-03] MEDS: CARVEDILOL 25 MG TABLET (FP) PO SCH ×2 (09:21→21:47)
[2021-03-03 09:22] LABS: BILIRUBIN,TOTAL 0.2 mg/dL (0.2-1); TOT PROT 6.3 g/dl (6.4-8.2)
[2021-03-03 12:37] LABS: EPI CELLS 11 /uL (0-25.1); HYALINE CASTS 2 /uL (0-3.1); URINE APPEARANCE CLEAR; URINE BACTERIA 1 /uL (0-1359); URINE BILIRUBIN NEGATIVE (NEGATIVE); URINE COLOR YELLOW; URINE GLUCOSE (UA) TRACE (NEGATIVE); URINE KETONE NEGATIVE (NEGATIVE); URINE LEUK ESTERASE TRACE (NEGATIVE); URINE NITRITE NEGATIVE (NEGATIVE); URINE PROTEIN 3+ (NEGATIVE); URINE RBC 6 /uL (0-23.9); URINE UROBILINOGEN 0.2 mg/dL (0.2-1.0); URINE WBC 32 /uL (0-25.8)
[2021-03-03] MEDS: hydrALAZINE HCL 25 MG TABLET (FP) PO SCH ×2 (13:59→21:47)
[2021-03-03] MEDS: ATORVASTATIN CA 40 MG TABLET (FP) PO SCH (21:47)
[2021-03-04] MEDS: NITROFURANTOIN MACROCRYSTAL 50 MG CAPSULE (FP) PO SCH ×4 (01:49→18:21)
[2021-03-04] MEDS: INSULIN SLIDING SCALE (NOVOLOG) 1 VIAL SQ SCH ×4 (06:38→23:11)
[2021-03-04] MEDS: hydrALAZINE HCL 25 MG TABLET (FP) PO SCH (06:43)
[2021-03-04] MEDS: HEPARIN NA (PORCINE) 5,000 UNITS/ML 1ML VIAL SQ SCH ×3 (06:43→23:07)
[2021-03-04] MEDS: ASPIRIN 81 MG CHEWABLE TABLETS PO SCH (09:18)
[2021-03-04] MEDS: ESCITALOPRAM OXALATE 10 MG TABLET PO SCH (09:18)
[2021-03-04] MEDS: FUROSEMIDE 40 MG TABLET (FP) PO SCH (09:18)
[2021-03-04] MEDS: LISINOPRIL 20 MG TABLET PO SCH (09:19)
[2021-03-04] MEDS: amLODIPine BESYLATE 10 MG TABLET (FP) PO SCH (09:19)
[2021-03-04] MEDS: CARVEDILOL 25 MG TABLET (FP) PO SCH ×2 (09:19→23:06)
[2021-03-04] MEDS: hydrALAZINE HCL 50 MG TABLET (FP) PO SCH ×2 (13:36→23:06)
[2021-03-04] MEDS: ATORVASTATIN CA 40 MG TABLET (FP) PO SCH (23:06)
[2021-03-05] MEDS: NITROFURANTOIN MACROCRYSTAL 50 MG CAPSULE (FP) PO SCH ×3 (00:15→11:52)
[2021-03-05] MEDS: hydrALAZINE HCL 50 MG TABLET (FP) PO SCH (06:48)
[2021-03-05] MEDS: HEPARIN NA (PORCINE) 5,000 UNITS/ML 1ML VIAL SQ SCH ×3 (06:48→22:29)
[2021-03-05] MEDS: INSULIN SLIDING SCALE (NOVOLOG) 1 VIAL SQ SCH ×4 (07:00→22:30)
[2021-03-05] MEDS: CARVEDILOL 25 MG TABLET (FP) PO SCH ×2 (09:36→22:30)
[2021-03-05] MEDS: LISINOPRIL 20 MG TABLET PO SCH (09:36)
[2021-03-05] MEDS: ESCITALOPRAM OXALATE 10 MG TABLET PO SCH (09:36)
[2021-03-05] MEDS: FUROSEMIDE 40 MG TABLET (FP) PO SCH (09:36)
[2021-03-05] MEDS: amLODIPine BESYLATE 10 MG TABLET (FP) PO SCH (09:36)
[2021-03-05] MEDS: ASPIRIN 81 MG CHEWABLE TABLETS PO SCH (09:37)
[2021-03-05 09:52] LABS: BASO % 1.1 % (0-2.0); EOS % 3.1 % (0-4.5); HEMATOCRIT 29.3 % (32.4-45.2); HEMOGLOBIN 10.1 GM/dL (10.7-15.3); LYMPH % 25.2 % (8-40); MCH 30.1 pg (25.7-33.7); MCHC 34.4 g/dl (32.0-36.0); MEAN CELL VOLUME 87.4 fl (80-96); MEAN PLT VOLUME 7.9 fl (7.5-11.1); NEUT % 63.6 % (42.8-82.8); PLATELET COUNT 225 10^3/uL (134-434); RBC 3.35 M/mm3 (3.60-5.2); RDW 16.4 % (11.6-15.6)
[2021-03-05 10:48] LABS: BLOOD UREA NITROGEN 41.4 mg/dL (7-18); CALCIUM 8.8 mg/dL (8.5-10.1)
[2021-03-05] MEDS: hydrALAZINE HCL 25 MG TABLET (FP) PO SCH ×2 (14:26→22:29)
[2021-03-05] MEDS: ATORVASTATIN CA 40 MG TABLET (FP) PO SCH (22:29)
[2021-03-06] MEDS: hydrALAZINE HCL 25 MG TABLET (FP) PO SCH ×3 (05:59→22:35)
[2021-03-06] MEDS: INSULIN SLIDING SCALE (NOVOLOG) 1 VIAL SQ SCH ×4 (06:00→22:36)
[2021-03-06] MEDS: HEPARIN NA (PORCINE) 5,000 UNITS/ML 1ML VIAL SQ SCH ×4 (06:00→22:36)
[2021-03-06 09:09] LABS: BASO % 1.1 % (0-2.0); EOS % 3.4 % (0-4.5); HEMATOCRIT 26.3 % (32.4-45.2); HEMOGLOBIN 8.9 GM/dL (10.7-15.3); LYMPH % 24.8 % (8-40); MCH 29.8 pg (25.7-33.7); MCHC 33.8 g/dl (32.0-36.0); MEAN CELL VOLUME 88.4 fl (80-96); MEAN PLT VOLUME 8.2 fl (7.5-11.1); MONO % 9.1 % (3.8-10.2); NEUT % 61.6 % (42.8-82.8); PLATELET COUNT 203 10^3/uL (134-434); RBC 2.97 M/mm3 (3.60-5.2); RDW 16.2 % (11.6-15.6)
[2021-03-06] MEDS: LISINOPRIL 20 MG TABLET PO SCH (09:30)
[2021-03-06] MEDS: amLODIPine BESYLATE 10 MG TABLET (FP) PO SCH (09:30)
[2021-03-06] MEDS: FUROSEMIDE 40 MG TABLET (FP) PO SCH (09:30)
[2021-03-06] MEDS: ESCITALOPRAM OXALATE 10 MG TABLET PO SCH (09:30)
[2021-03-06] MEDS: CARVEDILOL 25 MG TABLET (FP) PO SCH ×2 (09:30→22:36)
[2021-03-06] MEDS: ASPIRIN 81 MG CHEWABLE TABLETS PO SCH (09:30)
[2021-03-06 09:37] LABS: CALCIUM 8.5 mg/dL (8.5-10.1)
[2021-03-06 09:38] LABS: ALBUMIN 2.4 g/dl (3.4-5.0); BLOOD UREA NITROGEN 47.4 mg/dL (7-18); MAGNESIUM 2.3 mg/dL (1.8-2.4)
[2021-03-06 09:41] LABS: CREATININE 1.9 mg/dL (0.55-1.3); PHOSPHOROUS 5.1 mg/dL (2.5-4.9)
[2021-03-06 09:42] LABS: BILIRUBIN,TOTAL 0.4 mg/dL (0.2-1); TOT PROT 6.1 g/dl (6.4-8.2)
[2021-03-06] MEDS: ATORVASTATIN CA 40 MG TABLET (FP) PO SCH (22:36)
[2021-03-07] MEDS: INSULIN SLIDING SCALE (NOVOLOG) 1 VIAL SQ SCH ×2 (06:41→11:19)
[2021-03-07] MEDS: hydrALAZINE HCL 25 MG TABLET (FP) PO SCH ×2 (06:45→14:25)
[2021-03-07 08:25] LABS: BASO % 1.1 % (0-2.0); EOS % 3.1 % (0-4.5); HEMATOCRIT 27.2 % (32.4-45.2); HEMOGLOBIN 9.1 GM/dL (10.7-15.3); LYMPH % 27.5 % (8-40); MCH 29.3 pg (25.7-33.7); MCHC 33.3 g/dl (32.0-36.0); MEAN CELL VOLUME 87.9 fl (80-96); NEUT % 60.3 % (42.8-82.8); PLATELET COUNT 206 10^3/uL (134-434); RDW 16.3 % (11.6-15.6); WHITE BLOOD COUNT 4.4 K/mm3 (4.0-10.0)
[2021-03-07 08:59] LABS: ALBUMIN 2.6 g/dl (3.4-5.0); BILIRUBIN,TOTAL 0.2 mg/dL (0.2-1); BLOOD UREA NITROGEN 53.9 mg/dL (7-18); CALCIUM 8.8 mg/dL (8.5-10.1)
[2021-03-07 09:00] LABS: MAGNESIUM 2.2 mg/dL (1.8-2.4)
[2021-03-07 09:01] LABS: CREATININE 2.1 mg/dL (0.55-1.3)
[2021-03-07 09:02] LABS: PHOSPHOROUS 4.8 mg/dL (2.5-4.9)
[2021-03-07 09:06] LABS: TOT PROT 6.3 g/dl (6.4-8.2)
[2021-03-07] MEDS: ASPIRIN 81 MG CHEWABLE TABLETS PO SCH (09:25)
[2021-03-07] MEDS: FUROSEMIDE 40 MG TABLET (FP) PO SCH (09:25)
[2021-03-07] MEDS: CARVEDILOL 25 MG TABLET (FP) PO SCH (09:25)
[2021-03-07] MEDS: amLODIPine BESYLATE 10 MG TABLET (FP) PO SCH (09:25)
[2021-03-07] MEDS: LISINOPRIL 20 MG TABLET PO SCH (09:25)
[2021-03-07] MEDS: HEPARIN NA (PORCINE) 5,000 UNITS/ML 1ML VIAL SQ SCH (14:25)
[2021-03-07 14:44] VITALS: BP 123/56; PULSE 64; TEMP 98.1
== END 2021-03-07 18:35 | disposition home or self-care (01) ==
LOC: JER 21:25 → UNDOADMOB 03-01 00:48 → JERBED 03-01 00:48 → INTOOBSV 03-01 00:48 → J6S 03-01 12:30 → JERBED 03-01 12:30 → J6S 03-01 13:46 → JERBED 03-01 13:46
PROVIDERS: ADMIT Internal Medicine
DX: I13.10 Hypertensive heart and chronic kidney disease without heart failure, with stage 1 through stage 4 chronic kidney disease, or unspecified chronic kidney disease (principal); I16.0 Hypertensive urgency; E11.22 Type 2 diabetes mellitus with diabetic chronic kidney disease; N18.9 Chronic kidney disease, unspecified; E78.5 Hyperlipidemia, unspecified; F03.90 Unspecified dementia, unspecified severity, without behavioral disturbance, psychotic disturbance, mood disturbance, and anxiety; I73.9 Peripheral vascular disease, unspecified; Z86.73 Personal history of transient ischemic attack (TIA), and cerebral infarction without residual deficits; R80.9 Proteinuria, unspecified; F32.9 Major depressive disorder, single episode, unspecified; R29.6 Repeated falls; R41.82 Altered mental status, unspecified; Z91.14 Patient's other noncompliance with medication regimen
CPT/HCPCS: 36415; 70450-TC; 71045-TC-FY; 80048; 80053; 81003; 82550; 82962; 83735; 84100; 84484; 85025; 93005; 93010; 96365; 97116-GP; 97162-GP; 99285-25; C9803; G0378; J1644; U0003; U0005